=== PATIENT | female | born 1940 | race African-American/Black ===

== ENCOUNTER → 2016-09-07 | Outpatient (CLI) | payer MEDICARE, OTHER ==
[~2016-09-07] MED LIST: ACETTAB85; ALBU0.084; ATEN50TA80; FEXO-8; FLUT250M2; MONT4GRA; OXYC5TAB3; POTA10TA34; TELM80TA; norvasc
[2016-09-07 16:15] LABS: Basophils # (auto) 0 uL; Basophils % (auto) 0.9 % (0.0-2.0); Eosinophils # (auto) 0.1 uL; Eosinophils % (auto) 1.9 % (0.0-7.0); Hematocrit 35.8 % (36.0-46.0); Hemoglobin 11.1 g/dL (12.2-16.2); Lymphocytes # (auto) 1.6 uL; Lymphocytes % (auto) 32.5 % (10.0-50.0); Mean Corpuscular Volume 93.4 fL (80.0-100.0); Mean Platelet Volume 8.6 fL (7.4-10.4); Monocytes # (auto) 0.4 uL; Monocytes % (auto) 8.2 % (0.0-12.0); Neutrophils # (auto) 2.8 uL; Neutrophils % (auto) 56.5 % (37.0-80.0); Platelet Count (auto) 368 10^3/uL (140-450); Red Cell Distribution Width 14.4 % (11.6-16.0); White Blood Cell 4.9 10^3/uL (4.4-10.8)
[2016-09-07 16:43] LABS: Calcium 8.9 mg/dL (8.5-10.1); Potassium 3.6 mmol/L (3.5-5.1)
[2016-09-07 16:45] LABS: BUN/Creatinine Ratio 9.7
== END | disposition home or self-care (01) ==
LOC: LAB 13:07
PROVIDERS: ATTEND Internal Medicine Cardiovascular Disease
DX: I10 Essential (primary) hypertension (principal); D64.9 Anemia, unspecified
CPT/HCPCS: 36415; 80048; 85025

== ENCOUNTER → 2016-11-27 | Outpatient (CLI) | payer MEDICARE, OTHER ==
[2016-11-27 08:10] VITALS: BP 120/59
[2016-11-27 09:05] VITALS: BP 117/65
== END | disposition home or self-care (01) ==
LOC: CHF HDHVI 08:09
PROVIDERS: ATTEND Internal Medicine Cardiovascular Disease
DX: I11.0 Hypertensive heart disease with heart failure (principal); I50.9 Heart failure, unspecified; R07.9 Chest pain, unspecified
CPT/HCPCS: 93005; G0463

== ENCOUNTER → 2017-01-22 | Outpatient (CLI) | payer MEDICARE, OTHER ==
[~2017-01-22] MED LIST changes: +CYANOCOBALAMIN (B-12) 1000 MCG/1 ML VIAL IM ONE; +CYANOCOBALAMIN (B-12) 1000 MCG/1 ML VIAL ONE; +MULTIPLE VIT 10 ML IV ONE; +MVI in SODIUM CHLORIDE 0.9% 1,010 ML ONE; +ONDANSETRON HCL 4 MG/2 ML VIAL IV ONE; +ONDANSETRON HCL 4 MG/2 ML VIAL ONE
[2017-01-22 12:20] LABS: Basophils # (auto) 0 uL; Basophils % (auto) 0.7 % (0.0-2.0); CONDITION Y; Eosinophils # (auto) 0.1 uL; Eosinophils % (auto) 1.8 % (0.0-7.0); Hematocrit 37.2 % (36.0-46.0); Hemoglobin 12.5 g/dL (12.2-16.2); Lymphocytes # (auto) 2.2 uL; Lymphocytes % (auto) 34.3 % (10.0-50.0); Mean Corpuscular Hemoglobin 30.9 pg (28.0-32.0); Mean Corpuscular Hgb Conc. 33.5 g/dL (32.0-36.0); Mean Corpuscular Volume 92.3 fL (80.0-100.0); Mean Platelet Volume 8.6 fL (7.4-10.4); Monocytes # (auto) 0.5 uL; Monocytes % (auto) 8.3 % (0.0-12.0); Neutrophils # (auto) 3.6 uL; Neutrophils % (auto) 54.9 % (37.0-80.0); Platelet Count (auto) 399 10^3/uL (140-450); White Blood Cell 6.5 10^3/uL (4.4-10.8)
[2017-01-22 12:30] VITALS: BP 149/68
[2017-01-22 12:40] LABS: INR 0.93 (0.9-1.15); Partial Thromboplastin Time 26.1 sec (22.64-33.71); Prothrombin Time 10.1 sec (9.37-12.3)
[2017-01-22 13:01] LABS: BUN/Creatinine Ratio 14.5; Calcium 8.3 mg/dL (8.5-10.1); Potassium 4.1 mmol/L (3.5-5.1)
== END | disposition home or self-care (01) ==
LOC: CHF HDHVI 09:55
PROVIDERS: ATTEND Internal Medicine Cardiovascular Disease
DX: I10 Essential (primary) hypertension (principal); D64.9 Anemia, unspecified; R79.1 Abnormal coagulation profile; Z01.812 Encounter for preprocedural laboratory examination
CPT/HCPCS: 36415; 80048; 85025; 85610; 85730; 96365; 96366; 96372; 96375; G0463; J2405; J3411; J3420; J3475

== ENCOUNTER → 2017-02-20 | Outpatient (CLI) | payer MEDICARE, OTHER ==
[~2017-02-20] VITALS: Ht 30.5 cm; Wt 68.0 kg
[~2017-02-20] MED LIST changes: -CYANOCOBALAMIN (B-12) 1000 MCG/1 ML VIAL IM ONE; -CYANOCOBALAMIN (B-12) 1000 MCG/1 ML VIAL ONE; -ONDANSETRON HCL 4 MG/2 ML VIAL IV ONE; -ONDANSETRON HCL 4 MG/2 ML VIAL ONE; +SODIUM CHLORIDE 0.9% 500 ML IV SCH
[2017-02-20 14:15] VITALS: BP 126/63
[2017-02-20 16:39] LABS: Basophils # (auto) 0.1 uL; Basophils % (auto) 0.9 % (0.0-2.0); CONDITION Y; Eosinophils # (auto) 0.2 uL; Eosinophils % (auto) 3.1 % (0.0-7.0); Hematocrit 29.7 % (36.0-46.0); Lymphocytes # (auto) 1.7 uL; Lymphocytes % (auto) 31.2 % (10.0-50.0); Mean Corpuscular Hemoglobin 30.2 pg (28.0-32.0); Mean Corpuscular Hgb Conc. 33.6 g/dL (32.0-36.0); Mean Corpuscular Volume 89.9 fL (80.0-100.0); Mean Platelet Volume 7.8 fL (7.4-10.4); Monocytes # (auto) 0.5 uL; Monocytes % (auto) 10.2 % (0.0-12.0); Neutrophils # (auto) 2.9 uL; Neutrophils % (auto) 54.6 % (37.0-80.0); Platelet Count (auto) 719 10^3/uL (140-450); Red Cell Distribution Width 14.3 % (11.6-16.0); White Blood Cell 5.3 10^3/uL (4.4-10.8)
== END | disposition home or self-care (01) ==
LOC: CHF HDHVI 10:47
PROVIDERS: ATTEND Internal Medicine Cardiovascular Disease
DX: D64.9 Anemia, unspecified (principal); I10 Essential (primary) hypertension
CPT/HCPCS: 36415; 85025; 96365; 96366; G0463; J3411; J3475; 96360

== ENCOUNTER → 2017-03-06 | Outpatient (CLI) | payer MEDICARE, OTHER ==
[~2017-03-06] MED LIST changes: -MULTIPLE VIT 10 ML IV ONE; +MVI in SODIUM CHLORIDE 0.9% 1,000 ML IVB ONE; -SODIUM CHLORIDE 0.9% 500 ML IV SCH
[2017-03-06 15:00] VITALS: BP 134/68
[2017-03-06 16:53] LABS: Basophils # (auto) 0 uL; Basophils % (auto) 0.5 % (0.0-2.0); CONDITION Y; Eosinophils # (auto) 0.1 uL; Eosinophils % (auto) 1.1 % (0.0-7.0); Hematocrit 27.9 % (36.0-46.0); Hemoglobin 9.3 g/dL (12.2-16.2); Lymphocytes % (auto) 15.1 % (10.0-50.0); Mean Corpuscular Hemoglobin 30.2 pg (28.0-32.0); Mean Corpuscular Hgb Conc. 33.5 g/dL (32.0-36.0); Mean Corpuscular Volume 90.2 fL (80.0-100.0); Mean Platelet Volume 8.9 fL (7.4-10.4); Monocytes # (auto) 0.4 uL; Monocytes % (auto) 6.7 % (0.0-12.0); Neutrophils # (auto) 4.9 uL; Neutrophils % (auto) 76.6 % (37.0-80.0); Platelet Count (auto) 418 10^3/uL (140-450); Red Cell Distribution Width 14.8 % (11.6-16.0); White Blood Cell 6.4 10^3/uL (4.4-10.8)
[2017-03-06 17:19] LABS: Calcium 8.5 mg/dL (8.5-10.1); Magnesium 2.4 mg/dL (1.6-2.6); Potassium 4.1 mmol/L (3.5-5.1)
== END | disposition home or self-care (01) ==
LOC: CHF HDHVI 11:32
PROVIDERS: ATTEND Internal Medicine Cardiovascular Disease
DX: I10 Essential (primary) hypertension (principal); E83.42 Hypomagnesemia; E03.9 Hypothyroidism, unspecified; D64.9 Anemia, unspecified
CPT/HCPCS: 36415; 80048; 83735; 84439; 84443; 85025; J3411; J3475

== ENCOUNTER → 2017-03-15 | Outpatient (CLI) | payer MEDICARE, OTHER ==
[~2017-03-15] MED LIST changes: +EPOETIN ALFA 10,000 UNIT/1 ML VIAL ONE; +EPOETIN ALFA 4,000 UNIT/ML VL SC ONE; -MVI in SODIUM CHLORIDE 0.9% 1,000 ML IVB ONE; -MVI in SODIUM CHLORIDE 0.9% 1,010 ML ONE
[2017-03-15 13:30] VITALS: BP 128/64
[2017-03-15 13:56] VITALS: BP 133/56
== END | disposition home or self-care (01) ==
LOC: CHF HDHVI 13:34
PROVIDERS: ATTEND Internal Medicine Cardiovascular Disease
DX: I50.9 Heart failure, unspecified (principal); D64.89 Other specified anemias
CPT/HCPCS: 96372; G0463; J0885

== ENCOUNTER → 2017-03-22 | Outpatient (CLI) | payer MEDICARE, OTHER ==
[~2017-03-22] MED LIST changes: +CYANOCOBALAMIN (B-12) 1000 MCG/1 ML VIAL IM ONE; +CYANOCOBALAMIN (B-12) 1000 MCG/1 ML VIAL ONE; -EPOETIN ALFA 10,000 UNIT/1 ML VIAL ONE; -EPOETIN ALFA 4,000 UNIT/ML VL SC ONE
[2017-03-22 12:15] VITALS: BP 103/55
[2017-03-22 14:01] VITALS: BP 96/58
== END | disposition home or self-care (01) ==
LOC: CHF HDHVI 12:42
PROVIDERS: ATTEND Internal Medicine Cardiovascular Disease
DX: D64.9 Anemia, unspecified (principal); I11.0 Hypertensive heart disease with heart failure; I50.9 Heart failure, unspecified; R42 Dizziness and giddiness; R06.02 Shortness of breath
CPT/HCPCS: 96372; G0463; J3420

== ENCOUNTER → 2017-03-27 | Outpatient (CLI) | payer MEDICARE, OTHER ==
[~2017-03-27] VITALS: Ht 30.5 cm; Wt 0.5 kg
[~2017-03-27] MED LIST changes: +KETOROLAC TROMETH 60MG/2ML VIAL IM ONE
[2017-03-27 11:25] VITALS: BP 117/53
[2017-03-27 11:59] VITALS: BP 110/51
[2017-03-27 16:13] LABS: Basophils # (auto) 0 uL; Basophils % (auto) 0.8 % (0.0-2.0); CONDITION Y; Eosinophils # (auto) 0.2 uL; Eosinophils % (auto) 3.1 % (0.0-7.0); Hematocrit 31.8 % (36.0-46.0); Hemoglobin 10.4 g/dL (12.2-16.2); Lymphocytes # (auto) 1.4 uL; Lymphocytes % (auto) 23.6 % (10.0-50.0); Mean Corpuscular Hemoglobin 29.7 pg (28.0-32.0); Mean Corpuscular Hgb Conc. 32.5 g/dL (32.0-36.0); Mean Corpuscular Volume 91.2 fL (80.0-100.0); Monocytes # (auto) 0.5 uL; Monocytes % (auto) 7.8 % (0.0-12.0); Neutrophils # (auto) 3.9 uL; Neutrophils % (auto) 64.7 % (37.0-80.0); Platelet Count (auto) 452 10^3/uL (140-450); Red Cell Distribution Width 16.3 % (11.6-16.0); White Blood Cell 6.1 10^3/uL (4.4-10.8)
[2017-03-27 16:36] LABS: BUN/Creatinine Ratio 12.5; Calcium 8.7 mg/dL (8.5-10.1); Magnesium 2.6 mg/dL (1.6-2.6); Potassium 3.9 mmol/L (3.5-5.1)
== END | disposition home or self-care (01) ==
LOC: CHF HDHVI 11:33
PROVIDERS: ATTEND Internal Medicine Cardiovascular Disease
DX: I10 Essential (primary) hypertension (principal); D51.9 Vitamin B12 deficiency anemia, unspecified; E55.9 Vitamin D deficiency, unspecified; D64.9 Anemia, unspecified
CPT/HCPCS: 36415; 80048; 82306; 82607; 83735; 85025; 96372; G0463; J1885; J3420

== ENCOUNTER → 2017-06-10 | Outpatient (CLI) | payer MEDICARE, OTHER ==
[~2017-06-10] MED LIST changes: -CYANOCOBALAMIN (B-12) 1000 MCG/1 ML VIAL IM ONE; -CYANOCOBALAMIN (B-12) 1000 MCG/1 ML VIAL ONE; -KETOROLAC TROMETH 60MG/2ML VIAL IM ONE
[2017-06-10 16:40] LABS: BUN/Creatinine Ratio 8.9; Magnesium 2.7 mg/dL (1.6-2.6); Potassium 4.2 mmol/L (3.5-5.1)
== END | disposition home or self-care (01) ==
LOC: LAB 12:06
PROVIDERS: ATTEND Internal Medicine Cardiovascular Disease
DX: I10 Essential (primary) hypertension (principal); E83.42 Hypomagnesemia
CPT/HCPCS: 36415; 80048; 83735

== ENCOUNTER → 2017-08-02 | Outpatient (CLI) | payer MEDICARE, OTHER ==
[~2017-08-02] MED LIST changes: +ALPR0.25 PO; +CHOL400C12 PO; +ESOM20CA PO; +FLUT250M2 IN; +HCTZ25T GT; +LEVO25TA6 PO; +MAGNTAB16 OR; +MET250T PO; +MONT10TA23 PO; +MONT10TA34 PO; -TELM80TA; +TELM80TA PO; +[UNRECOGNIZED DRUG - CODE] PO; +[UNRECOGNIZED DRUG - CODE] TD
[2017-08-02 15:45] LABS: BUN/Creatinine Ratio 12.5; Calcium 8.5 mg/dL (8.5-10.1); Potassium 3.8 mmol/L (3.5-5.1)
== END | disposition home or self-care (01) ==
LOC: LAB 12:56
PROVIDERS: ATTEND Internal Medicine Cardiovascular Disease
DX: I10 Essential (primary) hypertension (principal); J44.9 Chronic obstructive pulmonary disease, unspecified
CPT/HCPCS: 36415; 80048

== ENCOUNTER → 2017-09-24 | Outpatient (CLI) | payer MEDICARE, OTHER | END | disposition home or self-care (01) | LOC: LAB 10:05 | PROVIDERS: ATTEND Internal Medicine Cardiovascular Disease | DX: E03.9 Hypothyroidism, unspecified (principal) | CPT/HCPCS: 36415; 84439; 84443 ==

== ENCOUNTER 2017-10-22 14:20 | Inpatient (IN) | payer MEDICARE, OTHER ==
[~2017-10-22] VITALS: Ht 160 cm; Wt 71.9 kg
[~2017-10-22 14:20] MED LIST changes: -ALPR0.25 PO; -CHOL400C12 PO; -FLUT250M2 IN; -LEVO25TA6 PO; -MAGNTAB16 OR; -MET250T PO; -MONT10TA23 PO; -MONT10TA34 PO; -[UNRECOGNIZED DRUG - CODE] PO; -[UNRECOGNIZED DRUG - CODE] TD
[2017-10-22 15:41] LABS: Basophils # (auto) 0 uL; Basophils % (auto) 1.1 % (0.0-2.0); Eosinophils # (auto) 0.2 uL; Eosinophils % (auto) 4.8 % (0.0-7.0); Hematocrit 34.5 % (36.0-46.0); Hemoglobin 11.7 g/dL (12.2-16.2); Lymphocytes # (auto) 1.1 uL; Mean Corpuscular Hemoglobin 32.1 pg (28.0-32.0); Mean Corpuscular Hgb Conc. 33.8 g/dL (32.0-36.0); Monocytes # (auto) 0.6 uL; Monocytes % (auto) 11.9 % (0.0-12.0); Neutrophils # (auto) 2.7 uL; Neutrophils % (auto) 58.2 % (37.0-80.0); Nucleated Red Blood Cells % 0.1 %; Platelet Count (auto) 346 10^3/uL (140-450); Red Blood Cells 3.63 10^6/uL (4.0-5.20); Red Cell Distribution Width 14.5 % (11.8-14.3); White Blood Cell 4.7 10^3/uL (4.4-10.8)
[2017-10-22 15:52] LABS: INR 0.94 (0.9-1.15); Partial Thromboplastin Time 22.9 sec (22.64-33.71); Prothrombin Time 10.2 sec (9.37-12.3)
[2017-10-22 15:58] LABS: Alanine Aminotransferase 17 U/L (13-56); Albumin 3.4 g/dL (3.4-5.0); Alkaline Phosphatase 67 U/L (45-117); Anion Gap 6 (5-15); Aspartate Aminotransferase 14 U/L (15-37); BUN/Creatinine Ratio 10.5; Bilirubin, Total 0.2 mg/dL (0.2-1.0); Blood Alcohol < 3.0 mg/dL (0-5); Blood Urea Nitrogen 15 mg/dL (7-18); Calcium 8.5 mg/dL (8.5-10.1); Carbon Dioxide 27 mmol/L (21-32); Chloride 105 mmol/L (98-107); GFR African American 46 mL/min; GFR Non-African American 38 mL/min; Glucose 119 mg/dL (74-106); Magnesium 2.8 mg/dL (1.6-2.6); Potassium 4.6 mmol/L (3.5-5.1); Sodium 138 mmol/L (136-145); Total Protein 6.4 g/dL (6.4-8.2)
[2017-10-22] MEDS ORDERED: ACETAMINOPHEN 325 MG TAB PO PRN (16:45)
[2017-10-22] MEDS ORDERED: MORPHINE SULFATE 4 MG/ML SYR/VIAL IV PRN ×2 (16:45)
[2017-10-22] MEDS ORDERED: ZOLPIDEM TARTRATE 5 MG TAB PO PRN (16:45)
[2017-10-22] MEDS ORDERED: ONDANSETRON HCL 4 MG/2 ML VIAL IV PRN (16:45)
[2017-10-22] MEDS ORDERED: ALUM & MAG HYDROX-SIMETH LIQ(MAALOX) 30 ML PO ONE (16:45)
[2017-10-22] MEDS ORDERED: LORazepam 0.5 MG TAB PO PRN (16:45)
[2017-10-22] MEDS ORDERED: NITROGLYCERIN 0.4 MG SL TAB SL PRN ×2 (16:45)
[2017-10-22] MEDS ORDERED: CLOPIDOGREL BISULFATE 75 MG TAB PO ONE (17:00)
[2017-10-22] MEDS ORDERED: MULTIPLE VITAMINS W/ MINERALS TAB PO ONE (17:00)
[2017-10-22] MEDS ORDERED: DOCUSATE SOD 100 MG CAP PO ONE (17:00)
[2017-10-22] MEDS: ASPirin 81 mg TAB PO SCH (17:36)
[2017-10-22] MEDS: METHYLDOPA 250 MG TAB PO SCH ×2 (18:00→22:00)
[2017-10-22 18:05] VITALS: BP 104/48
[2017-10-22] MEDS: ALBUTEROL SULF 2.5 MG/0.5ML(0.5%) NEB SOLN NEB SCH (18:05)
[2017-10-22] MEDS: BUDESONIDE (INHALATION) 0.5 MG/2 ML NEB NEB SCH (18:05)
[2017-10-22 20:15] VITALS: BP 129/54
[2017-10-22] MEDS: ATORVASTATIN 20 MG TAB PO SCH (22:00)
[2017-10-22] MEDS: CARVEDILOL 3.125 MG TAB PO SCH (22:00)
[2017-10-22] MEDS: SODIUM CHLOR 0.9% PF (SALINE LOCK) 10ML VIAL IV SCH (22:13)
[2017-10-22] MEDS: MONTELUKAST SODIUM 10 MG TAB PO SCH (22:17)
[2017-10-23] MEDS: ALBUTEROL SULF 2.5 MG/0.5ML(0.5%) NEB SOLN NEB SCH ×4 (00:15→19:03)
[2017-10-23] MEDS ORDERED: TELM80TA PO (04:59)
[2017-10-23] MEDS ORDERED: [UNRECOGNIZED DRUG - CODE] TD (04:59)
[2017-10-23] MEDS ORDERED: MAGNTAB16 OR (04:59)
[2017-10-23] MEDS ORDERED: LEVO25TA6 PO (04:59)
[2017-10-23] MEDS ORDERED: [UNRECOGNIZED DRUG - CODE] PO (04:59)
[2017-10-23] MEDS ORDERED: MONT10TA34 PO (04:59)
[2017-10-23] MEDS ORDERED: CHOL400C12 PO (04:59)
[2017-10-23] MEDS ORDERED: MONT10TA23 PO (04:59)
[2017-10-23] MEDS ORDERED: MET250T PO (04:59)
[2017-10-23] MEDS ORDERED: FLUT250M2 IN (04:59)
[2017-10-23 05:00] VITALS: BP 121/51
[2017-10-23 05:51] LABS: Basophils # (auto) 0 uL; Basophils % (auto) 0.5 % (0.0-2.0); Eosinophils # (auto) 0.2 uL; Eosinophils % (auto) 2.1 % (0.0-7.0); Hematocrit 30.9 % (36.0-46.0); Hemoglobin 10.5 g/dL (12.2-16.2); Lymphocytes # (auto) 1.2 uL; Lymphocytes % (auto) 12.8 % (10.0-50.0); Mean Corpuscular Hemoglobin 32.5 pg (28.0-32.0); Mean Corpuscular Volume 95.6 fL (80.0-100.0); Monocytes # (auto) 0.7 uL; Monocytes % (auto) 7.1 % (0.0-12.0); Neutrophils # (auto) 7.5 uL; Neutrophils % (auto) 77.5 % (37.0-80.0); Platelet Count (auto) 308 10^3/uL (140-450); Red Blood Cells 3.23 10^6/uL (4.0-5.20); Red Cell Distribution Width 14.2 % (11.8-14.3); White Blood Cell 9.7 10^3/uL (4.4-10.8)
[2017-10-23 06:09] LABS: Albumin 3.1 g/dL (3.4-5.0); BUN/Creatinine Ratio 12.3; Bilirubin, Total 0.4 mg/dL (0.2-1.0); Magnesium 2.3 mg/dL (1.6-2.6); Potassium 4.2 mmol/L (3.5-5.1); Total Protein 5.9 g/dL (6.4-8.2)
[2017-10-23] MEDS: METHYLDOPA 250 MG TAB PO SCH ×4 (06:23→22:24)
[2017-10-23] MEDS: LEVOTHYROXINE SODIUM 50 MCG TAB PO SCH (06:23)
[2017-10-23] MEDS ORDERED: ALPR0.25 PO (06:24)
[2017-10-23] MEDS: SODIUM CHLOR 0.9% PF (SALINE LOCK) 10ML VIAL IV SCH ×3 (06:30→22:00)
[2017-10-23] MEDS: BUDESONIDE (INHALATION) 0.5 MG/2 ML NEB NEB SCH ×2 (07:08→19:03)
[2017-10-23 09:00] VITALS: BP 125/43
[2017-10-23 09:42] LABS: Urine Bacteria NONE SEEN /hpf (None Seen); Urine Blood Negative /uL (Negative); Urine Hyaline Cast FEW /lpf (0 - 2); Urine Specific Gravity 1.023 (1.001-1.035); Urine WBC 1 /hpf (0 - 5)
[2017-10-23] MEDS: CARVEDILOL 3.125 MG TAB PO SCH ×3 (10:00→22:25)
[2017-10-23] MEDS: MAGNESIUM OXIDE 400 MG TAB PO SCH (10:00)
[2017-10-23] MEDS ORDERED: MAGNESIUM OXIDE 400 MG TAB PO SCH (10:00)
[2017-10-23] MEDS: HCTZ 25 MG TAB PO SCH (10:09)
[2017-10-23] MEDS: MULTIPLE VITAMINS W/ MINERALS TAB PO SCH (10:09)
[2017-10-23] MEDS: DOCUSATE SOD 100 MG CAP PO SCH (10:09)
[2017-10-23] MEDS: LOSARTAN POTASSIUM 50 MG TAB PO SCH (10:09)
[2017-10-23] MEDS: CHOLECALCIFEROL (VITD3) 1,000 UNIT TAB PO SCH (10:09)
[2017-10-23] MEDS: ASPirin 81 mg TAB PO SCH (10:09)
[2017-10-23] MEDS: CLOPIDOGREL BISULFATE 75 MG TAB PO SCH (10:09)
[2017-10-23 12:21] VITALS: BP 136/62
[2017-10-23 17:22] VITALS: BP 128/47
[2017-10-23 21:47] VITALS: BP 140/48
[2017-10-23] MEDS: ATORVASTATIN 20 MG TAB PO SCH (22:00)
[2017-10-23] MEDS: MONTELUKAST SODIUM 10 MG TAB PO SCH (22:25)
[2017-10-24] MEDS: ALBUTEROL SULF 2.5 MG/0.5ML(0.5%) NEB SOLN NEB SCH ×2 (00:39→06:33)
[2017-10-24 05:01] VITALS: BP 146/68
[2017-10-24] MEDS ORDERED: CARISOPRODOL 350 MG TAB PO ONE ×2 (06:15→06:45)
[2017-10-24] MEDS: SODIUM CHLOR 0.9% PF (SALINE LOCK) 10ML VIAL IV SCH (06:20)
[2017-10-24] MEDS: METHYLDOPA 250 MG TAB PO SCH ×2 (06:22→12:00)
[2017-10-24] MEDS: BUDESONIDE (INHALATION) 0.5 MG/2 ML NEB NEB SCH (06:33)
[2017-10-24 06:46] LABS: Basophils # (auto) 0 uL; Basophils % (auto) 0.6 % (0.0-2.0); Eosinophils # (auto) 0.2 uL; Eosinophils % (auto) 2.1 % (0.0-7.0); Hematocrit 32.8 % (36.0-46.0); Lymphocytes # (auto) 1.4 uL; Lymphocytes % (auto) 17.7 % (10.0-50.0); Mean Corpuscular Hemoglobin 31.4 pg (28.0-32.0); Mean Corpuscular Hgb Conc. 33.5 g/dL (32.0-36.0); Mean Corpuscular Volume 93.8 fL (80.0-100.0); Monocytes # (auto) 0.7 uL; Monocytes % (auto) 9.1 % (0.0-12.0); Neutrophils # (auto) 5.8 uL; Neutrophils % (auto) 70.5 % (37.0-80.0); Nucleated Red Blood Cells % 0.1 %; Platelet Count (auto) 328 10^3/uL (140-450); Red Cell Distribution Width 14.2 % (11.8-14.3); White Blood Cell 8.2 10^3/uL (4.4-10.8)
[2017-10-24] MEDS: LEVOTHYROXINE SODIUM 50 MCG TAB PO SCH (06:51)
[2017-10-24 06:52] LABS: Calcium 9.1 mg/dL (8.5-10.1); Potassium 4.1 mmol/L (3.5-5.1)
[2017-10-24 06:59] LABS: BUN/Creatinine Ratio 15.3
[2017-10-24 09:00] VITALS: BP_SYST 107; BP_SYST 141; BP_DIAS 62; BP_DIAS 66
[2017-10-24] MEDS: CARVEDILOL 3.125 MG TAB PO SCH (10:00)
[2017-10-24] MEDS: MAGNESIUM OXIDE 400 MG TAB PO SCH (10:04)
[2017-10-24] MEDS: DOCUSATE SOD 100 MG CAP PO SCH (10:04)
[2017-10-24] MEDS: CHOLECALCIFEROL (VITD3) 1,000 UNIT TAB PO SCH (10:04)
[2017-10-24] MEDS: MULTIPLE VITAMINS W/ MINERALS TAB PO SCH (10:04)
[2017-10-24] MEDS: CLOPIDOGREL BISULFATE 75 MG TAB PO SCH (10:04)
[2017-10-24] MEDS: ASPirin 81 mg TAB PO SCH (10:04)
[2017-10-24] MEDS: HCTZ 25 MG TAB PO SCH (10:06)
[2017-10-24] MEDS: LOSARTAN POTASSIUM 50 MG TAB PO SCH (10:07)
== END 2017-10-24 13:58 | disposition home or self-care (01) | DRG 191 ==
LOC: EDBD 14:20 → ER 14:20 → TELE 14:21 → TELE-EAST 20:39
PROVIDERS: ADMIT Internal Medicine; ATTEND Family Medicine
DX: J44.1 Chronic obstructive pulmonary disease with (acute) exacerbation (principal); J45.901 Unspecified asthma with (acute) exacerbation; E11.22 Type 2 diabetes mellitus with diabetic chronic kidney disease; E83.41 Hypermagnesemia; D63.8 Anemia in other chronic diseases classified elsewhere; E86.9 Volume depletion, unspecified; R55 Syncope and collapse; S00.83XA Contusion of other part of head, initial encounter; I25.119 Atherosclerotic heart disease of native coronary artery with unspecified angina pectoris; E03.9 Hypothyroidism, unspecified; E78.00 Pure hypercholesterolemia, unspecified; I10 Essential (primary) hypertension; I67.2 Cerebral atherosclerosis; N18.3 Chronic kidney disease, stage 3 (moderate); W18.39XA Other fall on same level, initial encounter; Z82.49 Family history of ischemic heart disease and other diseases of the circulatory system; Z90.710 Acquired absence of both cervix and uterus; Z98.49 Cataract extraction status, unspecified eye; Z79.899 Other long term (current) drug therapy; Y93.89 Activity, other specified; Y92.89 Other specified places as the place of occurrence of the external cause
CPT/HCPCS: 36415; 70450; 70551; 71045; 80048; 80053; 80061; 80320; 81001; 83735; 83880; 84443; 84484; 85025; 85379; 85610; 85730; 87086; 93005; 93306; 94640; 95819

== ENCOUNTER → 2017-12-25 | Outpatient (CLI) | payer MEDICARE, OTHER ==
[~2017-12-25] MED LIST changes: -ACETTAB85; -ALBU0.084; +ALPR0.25 PO; -ATEN50TA80; +CHOL400C12 PO; -ESOM20CA PO; -FEXO-8; -FLUT250M2; +FLUT250M2 IN; -HCTZ25T GT; +LEVO25TA6 PO; +MAGNTAB16 OR; +MET250T PO; +MONT10TA23 PO; -MONT4GRA; -OXYC5TAB3; -POTA10TA34; +[UNRECOGNIZED DRUG - CODE] PO; +[UNRECOGNIZED DRUG - CODE] TD; -norvasc
[2017-12-25 15:57] LABS: Basophils # (auto) 0 uL; Basophils % (auto) 0.8 % (0.0-2.0); Eosinophils # (auto) 0.1 uL; Eosinophils % (auto) 1.9 % (0.0-7.0); Hematocrit 33.2 % (36.0-46.0); Hemoglobin 11.1 g/dL (12.2-16.2); Lymphocytes # (auto) 1.6 uL; Lymphocytes % (auto) 30.8 % (10.0-50.0); Mean Corpuscular Hemoglobin 31.6 pg (28.0-32.0); Mean Corpuscular Hgb Conc. 33.4 g/dL (32.0-36.0); Mean Corpuscular Volume 94.6 fL (80.0-100.0); Monocytes # (auto) 0.5 uL; Monocytes % (auto) 10.1 % (0.0-12.0); Neutrophils # (auto) 2.9 uL; Neutrophils % (auto) 56.4 % (37.0-80.0); Nucleated Red Blood Cells % 0.1 %; Platelet Count (auto) 350 10^3/uL (140-450); Red Blood Cells 3.51 10^6/uL (4.0-5.20); Red Cell Distribution Width 14.1 % (11.8-14.3); White Blood Cell 5.2 10^3/uL (4.4-10.8)
== END | disposition home or self-care (01) ==
LOC: LAB 12:22
PROVIDERS: ATTEND Internal Medicine Cardiovascular Disease
DX: D64.9 Anemia, unspecified (principal); D72.810 Lymphocytopenia
CPT/HCPCS: 36415; 85025; 85045

== ENCOUNTER 2018-01-29 17:44 | Inpatient (IN) | payer MEDICARE, OTHER ==
[~2018-01-29] VITALS: Ht 160 cm; Wt 74.9 kg
[2018-01-29 18:56] LABS: Basophils # (auto) 0 uL; Basophils % (auto) 0.7 % (0.0-2.0); Eosinophils # (auto) 0.1 uL; Eosinophils % (auto) 1.7 % (0.0-7.0); Hematocrit 32.3 % (36.0-46.0); Hemoglobin 10.9 g/dL (12.2-16.2); Lymphocytes # (auto) 1.7 uL; Lymphocytes % (auto) 35.8 % (10.0-50.0); Mean Corpuscular Hemoglobin 31.6 pg (28.0-32.0); Mean Corpuscular Hgb Conc. 33.8 g/dL (32.0-36.0); Mean Corpuscular Volume 93.3 fL (80.0-100.0); Monocytes # (auto) 0.6 uL; Neutrophils # (auto) 2.3 uL; Neutrophils % (auto) 49.8 % (37.0-80.0); Platelet Count (auto) 294 10^3/uL (140-450); Red Blood Cells 3.46 10^6/uL (4.0-5.20); Red Cell Distribution Width 13.9 % (11.8-14.3); White Blood Cell 4.7 10^3/uL (4.4-10.8)
[2018-01-29 19:19] LABS: Alanine Aminotransferase 19 U/L (13-56); Albumin 3.5 g/dL (3.4-5.0); Alkaline Phosphatase 76 U/L (45-117); Anion Gap 9 (5-15); Aspartate Aminotransferase 13 U/L (15-37); BUN/Creatinine Ratio 12.1; Bilirubin, Total 0.2 mg/dL (0.2-1.0); Blood Urea Nitrogen 15 mg/dL (7-18); Calcium 8.9 mg/dL (8.5-10.1); Carbon Dioxide 25 mmol/L (21-32); Chloride 100 mmol/L (98-107); GFR African American 54 mL/min; GFR Non-African American 44 mL/min; Glucose 96 mg/dL (74-106); Potassium 3.8 mmol/L (3.5-5.1); Sodium 134 mmol/L (136-145); Total Protein 6.5 g/dL (6.4-8.2)
[2018-01-29] MEDS ORDERED: cloNIDine HCL 0.1 MG TAB PO ONE (21:45)
[2018-01-29 22:00] LABS: INR 0.93 (0.9-1.15); Partial Thromboplastin Time 25.6 sec (23.78-33.04)
[2018-01-30] VITALS (8 sets, daily range): BP systolic 129–157; BP diastolic 61–103
[2018-01-30] MEDS ORDERED: NITROGLYCERIN 0.4 MG SL TAB SL PRN (03:45)
[2018-01-30] MEDS ORDERED: MORPHINE SULF INJ 2 MG/ML SYRINGE 1ML IV PRN (03:45)
[2018-01-30] MEDS ORDERED: METHYLDOPA 250 MG TAB PO SCH ×2 (06:00→07:15)
[2018-01-30] MEDS ORDERED: MECLIZINE HCL 25 MG TAB PO PRN (07:00)
[2018-01-30] MEDS ORDERED: BUDESONIDE (INHALATION) 0.5 MG/2 ML NEB ONE (07:48)
[2018-01-30] MEDS: ENOXAPARIN SOD 60 MG/0.6 ML SYRINGE SC SCH ×2 (09:15→22:12)
[2018-01-30] MEDS: MONTELUKAST SODIUM 10 MG TAB PO SCH (09:15)
[2018-01-30] MEDS: METHYLDOPA 250 MG TAB PO SCH ×3 (09:25→22:12)
[2018-01-30] MEDS ORDERED: ALBUTEROL SULF 2.5 MG/0.5ML(0.5%) NEB SOLN NEB PRN (10:00)
[2018-01-30] MEDS ORDERED: CYCLOBENZAPRINE HCL 10 MG TAB PO ONE (10:00)
[2018-01-30] MEDS ORDERED: MICARDIS 40 MG PO SCH (10:00)
[2018-01-30] MEDS ORDERED: FERROUS SULFATE 325 MG TAB PO ONE (10:00)
[2018-01-30] MEDS: LEVOTHYROXINE SODIUM 50 MCG TAB PO SCH (10:56)
[2018-01-30] MEDS: FLUTICASONE PROP NASAL SPR 0.05 % (50MCG) 16GM EACHNOSTRI SCH (10:56)
[2018-01-30] MEDS ORDERED: CYCLOBENZAPRINE HCL 10 MG TAB PO PRN (14:00)
[2018-01-30 14:40] LABS: Urine Bacteria FEW /hpf (None Seen); Urine Blood Negative /uL (Negative); Urine Specific Gravity 1.005 (1.001-1.035); Urine WBC 1 /hpf (0 - 5)
[2018-01-30] MEDS: FERROUS SULFATE 325 MG TAB PO SCH (14:58)
[2018-01-30] MEDS: [UNRECOGNIZED DRUG - OTHER] PO SCH (17:00)
[2018-01-30] MEDS ORDERED: ACETAMINOPHEN 325 MG TAB PO ONE (20:30)
[2018-01-30] MEDS ORDERED: ACETAMINOPHEN 325 MG TAB PO PRN (21:30)
[2018-01-31 05:00] VITALS: BP 152/66
[2018-01-31] MEDS: METHYLDOPA 250 MG TAB PO SCH ×2 (06:20→15:03)
[2018-01-31 08:00] VITALS: BP 148/69
[2018-01-31 09:00] VITALS: BP 148/69
[2018-01-31] MEDS: LEVOTHYROXINE SODIUM 50 MCG TAB PO SCH (10:00)
[2018-01-31] MEDS: MONTELUKAST SODIUM 10 MG TAB PO SCH (10:05)
[2018-01-31] MEDS: FERROUS SULFATE 325 MG TAB PO SCH (10:05)
[2018-01-31] MEDS: FLUTICASONE PROP NASAL SPR 0.05 % (50MCG) 16GM EACHNOSTRI SCH (10:06)
[2018-01-31] MEDS: ENOXAPARIN SOD 60 MG/0.6 ML SYRINGE SC SCH (10:06)
[2018-01-31] MEDS: [UNRECOGNIZED DRUG - OTHER] PO SCH (10:07)
[2018-01-31 13:00] VITALS: BP 128/71
[2018-01-31 13:51] VITALS: BP 128/71
[2018-01-31 15:30] VITALS: BP 128/71
== END 2018-01-31 15:30 | disposition home or self-care (01) | DRG 206 ==
LOC: ER 17:44 → EDUNIT# 17:45 → TELE-WESTW 17:45 → ER 01-30 04:15
PROVIDERS: ADMIT Internal Medicine Cardiovascular Disease; ATTEND Internal Medicine Cardiovascular Disease
DX: M94.0 Chondrocostal junction syndrome [Tietze] (principal); I11.9 Hypertensive heart disease without heart failure; R07.9 Chest pain, unspecified; D64.9 Anemia, unspecified; E03.9 Hypothyroidism, unspecified; E78.5 Hyperlipidemia, unspecified; E78.00 Pure hypercholesterolemia, unspecified; J44.9 Chronic obstructive pulmonary disease, unspecified; Z82.49 Family history of ischemic heart disease and other diseases of the circulatory system
CPT/HCPCS: 36415; 71045; 80053; 81001; 84484; 85025; 85379; 85610; 85730; 93005

== ENCOUNTER → 2018-10-28 | Outpatient (CLI) | payer MEDICARE, OTHER ==
[2018-10-28 11:51] LABS: Basophils # (auto) 0 uL; Eosinophils # (auto) 0.1 uL; Eosinophils % (auto) 2.3 % (0.0-7.0); Hematocrit 35.8 % (36.0-46.0); Hemoglobin 11.7 g/dL (12.2-16.2); Lymphocytes # (auto) 1.1 uL; Lymphocytes % (auto) 23.2 % (10.0-50.0); Mean Corpuscular Hemoglobin 30.5 pg (28.0-32.0); Mean Corpuscular Hgb Conc. 32.8 g/dL (32.0-36.0); Monocytes # (auto) 0.6 uL; Monocytes % (auto) 11.9 % (0.0-12.0); Neutrophils % (auto) 61.6 % (37.0-80.0); Nucleated Red Blood Cells % 0.1 %; Platelet Count (auto) 325 10^3/uL (140-450); Red Blood Cells 3.85 10^6/uL (4.0-5.20); Red Cell Distribution Width 13.8 % (11.8-14.3); White Blood Cell 4.9 10^3/uL (4.4-10.8)
[2018-10-28 12:41] LABS: Potassium 4.1 mmol/L (3.5-5.1)
[2018-10-28 12:58] LABS: BUN/Creatinine Ratio 9.2; Calcium 8.9 mg/dL (8.5-10.1); Magnesium 2.3 mg/dL (1.6-2.6)
[2018-10-28 13:01] LABS: Free T4 (Free Thyroxine) 1.12 ng/dL (0.89-1.76)
[2018-10-28 13:02] LABS: Folate (Folic Acid) 17.43 ng/mL (5.38-24)
[2018-10-28 13:44] LABS: Urine Blood TRACE /uL (Negative); Urine Specific Gravity 1.016 (1.001-1.035)
== END | disposition home or self-care (01) ==
LOC: LAB 10:19
PROVIDERS: ATTEND Internal Medicine Cardiovascular Disease
DX: N39.0 Urinary tract infection, site not specified (principal); D52.9 Folate deficiency anemia, unspecified; I10 Essential (primary) hypertension; D64.9 Anemia, unspecified; E83.40 Disorders of magnesium metabolism, unspecified; D51.9 Vitamin B12 deficiency anemia, unspecified; E03.9 Hypothyroidism, unspecified
CPT/HCPCS: 36415; 80048; 81003; 82607; 82746; 83735; 84439; 84443; 85025; 87086

== ENCOUNTER 2018-12-02 21:37 | Emergency (ER) | payer MEDICARE, OTHER ==
[~2018-12-02] VITALS: Ht 160 cm; Wt 72.1 kg
[2018-12-02 22:11] LABS: Basophils # (auto) 0.1 uL; Basophils % (auto) 1.1 % (0.0-2.0); Eosinophils # (auto) 0.2 uL; Eosinophils % (auto) 4.3 % (0.0-7.0); Hematocrit 31.6 % (36.0-46.0); Hemoglobin 10.4 g/dL (12.2-16.2); Lymphocytes # (auto) 1.8 uL; Lymphocytes % (auto) 35.1 % (10.0-50.0); Mean Corpuscular Hemoglobin 30.6 pg (28.0-32.0); Mean Corpuscular Hgb Conc. 32.9 g/dL (32.0-36.0); Mean Corpuscular Volume 92.8 fL (80.0-100.0); Monocytes # (auto) 0.6 uL; Monocytes % (auto) 12.6 % (0.0-12.0); Neutrophils # (auto) 2.4 uL; Neutrophils % (auto) 46.9 % (37.0-80.0); Nucleated Red Blood Cells % 0.1 %; Platelet Count (auto) 305 10^3/uL (140-450); Red Blood Cells 3.41 10^6/uL (4.0-5.20); Red Cell Distribution Width 13.8 % (11.8-14.3); White Blood Cell 5.1 10^3/uL (4.4-10.8)
[2018-12-02 22:27] LABS: Alanine Aminotransferase 16 U/L (13-56); Albumin 3.6 g/dL (3.4-5.0); Anion Gap 9 (5-15); Aspartate Aminotransferase 14 U/L (15-37); BUN/Creatinine Ratio 11.3; Blood Urea Nitrogen 13 mg/dL (7-18); Calcium 8.2 mg/dL (8.5-10.1); Carbon Dioxide 23 mmol/L (21-32); Chloride 98 mmol/L (98-107); GFR African American 59 mL/min; GFR Non-African American 48 mL/min; Glucose 92 mg/dL (74-106); Magnesium 1.9 mg/dL (1.6-2.6); Potassium 3.4 mmol/L (3.5-5.1); Sodium 130 mmol/L (136-145)
[2018-12-02 22:32] LABS: Alkaline Phosphatase 76 U/L (45-117); Bilirubin, Total 0.3 mg/dL (0.2-1.0); Total Protein 6.6 g/dL (6.4-8.2)
[2018-12-03] MEDS ORDERED: SODIUM CHLORIDE 0.9% 500 ML IV ONE (02:30)
[2018-12-03 02:35] LABS: Urine WBC None Seen /hpf (0 - 5)
[2018-12-03 02:43] LABS: Urine Bacteria NONE SEEN /hpf (None Seen); Urine Blood Negative /uL (Negative); Urine Specific Gravity 1.004 (1.001-1.035)
[2018-12-03] MEDS ORDERED: ALBUTEROL SULF 2.5 MG/0.5ML(0.5%) NEB SOLN NEB ONE (05:00)
[2018-12-03] MEDS ORDERED: IPRATROPIUM BROM 0.5 MG/2.5ML INH SOL NEB ONE (05:00)
[2018-12-03 05:48] VITALS: BP 163/70
== END 2018-12-03 06:09 | disposition home or self-care (01) ==
LOC: EDBD 21:37 → ER 21:42
DX: R07.89 Other chest pain (principal); J20.9 Acute bronchitis, unspecified; M79.10 Myalgia, unspecified site; E86.0 Dehydration; J44.9 Chronic obstructive pulmonary disease, unspecified; R51 Headache; E78.5 Hyperlipidemia, unspecified; I10 Essential (primary) hypertension; Z86.39 Personal history of other endocrine, nutritional and metabolic disease; Z88.8 Allergy status to other drugs, medicaments and biological substances; Z79.899 Other long term (current) drug therapy
CPT/HCPCS: 36415; 70450; 80053; 81001; 83735; 83880; 84484; 85025; 93005; 99284; J7040; J7611; J7644

== ENCOUNTER → 2018-12-15 | Outpatient (CLI) | payer MEDICARE, OTHER | END | disposition home or self-care (01) | LOC: Rad HDHVI 09:04 | PROVIDERS: ATTEND Internal Medicine Cardiovascular Disease | DX: I70.0 Atherosclerosis of aorta (principal); I11.9 Hypertensive heart disease without heart failure; R06.02 Shortness of breath | CPT/HCPCS: 71046 ==

== ENCOUNTER 2019-06-17 06:42 | Inpatient (IN) | payer MEDICARE, OTHER ==
[~2019-06-17] VITALS: Ht 162.6 cm; Wt 73.0 kg
[2019-06-17 07:22] LABS: Basophils # (auto) 0 uL; Basophils % (auto) 0.9 % (0.0-2.0); Eosinophils # (auto) 0 uL; Hematocrit 32.5 % (36.0-46.0); Hemoglobin 11.2 g/dL (12.2-16.2); Lymphocytes # (auto) 0.8 uL; Lymphocytes % (auto) 17.6 % (10.0-50.0); Mean Corpuscular Hemoglobin 31.5 pg (28.0-32.0); Mean Corpuscular Hgb Conc. 34.6 g/dL (32.0-36.0); Mean Corpuscular Volume 91.2 fL (80.0-100.0); Monocytes # (auto) 0.3 uL; Monocytes % (auto) 6.3 % (0.0-12.0); Neutrophils # (auto) 3.4 uL; Neutrophils % (auto) 74.2 % (37.0-80.0); Nucleated Red Blood Cells % 0.1 %; Platelet Count (auto) 256 10^3/uL (140-450); Red Blood Cells 3.57 10^6/uL (4.0-5.20); Red Cell Distribution Width 13.2 % (11.8-14.3); White Blood Cell 4.5 10^3/uL (4.4-10.8)
[2019-06-17 07:36] LABS: Albumin 3.8 g/dL (3.4-5.0); Anion Gap 11 (5-15); Blood Urea Nitrogen 7 mg/dL (7-18); Calcium 8.2 mg/dL (8.5-10.1); Carbon Dioxide 25 mmol/L (21-32); Chloride 78 mmol/L (98-107); Glucose 128 mg/dL (74-106)
[2019-06-17 07:42] LABS: Alanine Aminotransferase 20 U/L (13-56); Alkaline Phosphatase 53 U/L (45-117); Aspartate Aminotransferase 24 U/L (15-37); BUN/Creatinine Ratio 7.7; Bilirubin, Total 0.6 mg/dL (0.2-1.0); GFR African American 76 mL/min; GFR Non-African American 63 mL/min; Total Protein 7.3 g/dL (6.4-8.2)
[2019-06-17 07:44] LABS: Sodium 114 mmol/L (136-145)
[2019-06-17] MEDS ORDERED: SODIUM CHL 3% 500 ML IV ONE ×2 (08:15→21:30)
[2019-06-17] MEDS ORDERED: POTASSIUM CHL 20MEQ/100ML 100 ML IV ONE (08:15)
[2019-06-17] MEDS ORDERED: ALBUTEROL SULF 2.5 MG/0.5ML(0.5%) NEB SOLN NEB PRN (09:00)
[2019-06-17] MEDS ORDERED: NITROGLYCERIN 0.4 MG SL TAB SL PRN (09:00)
[2019-06-17] MEDS ORDERED: hydrALAZINE HCL 20 MG/ML VL IV PRN (09:00)
[2019-06-17] MEDS ORDERED: MORPHINE SULF INJ 2 MG/ML SYRINGE 1ML IV PRN ×2 (09:00→10:00)
[2019-06-17] MEDS ORDERED: POTASSIUM CHLORIDE 20 MEQ, LIDOCAINE 1% (LOCAL ANESTH.) 2 ML in SODIUM CHL 0.9% 100 ML IV ONE (09:15)
[2019-06-17] MEDS ORDERED: ONDANSETRON HCL 4 MG/2 ML VIAL IV PRN ×2 (10:00)
[2019-06-17] MEDS ORDERED: PATIENTS OWN MEDICATION (Fluticasone-Salmeterol (Advair Diskus 250/50) 2 PUFF) IN SCH (10:00)
[2019-06-17] MEDS ORDERED: HYDROcodone-ACET 5/325MG TAB PO PRN (10:00)
[2019-06-17] MEDS ORDERED: ACETAMINOPHEN 500 MG TAB PO PRN (10:00)
[2019-06-17] MEDS ORDERED: amLODIPine BESYLATE 5 MG TAB PO SCH (10:00)
[2019-06-17] MEDS ORDERED: BENAZEPRIL HCL 10 MG TAB PO SCH (10:00)
[2019-06-17 10:07] VITALS: BP 170/70
[2019-06-17] MEDS: LOSARTAN POTASSIUM 50 MG TAB PO SCH (10:08)
[2019-06-17] MEDS: ALPRAZolam 0.25 MG TAB PO SCH ×2 (10:09→23:01)
[2019-06-17] MEDS: MONTELUKAST SODIUM 10 MG TAB PO SCH (10:09)
[2019-06-17] MEDS: METOPROLOL SUCCINATE XL 50 MG TAB PO SCH (10:09)
[2019-06-17] MEDS: FAMOTIDINE 20 MG TAB PO SCH (10:11)
[2019-06-17] MEDS: ALBUTEROL SULF 2.5 MG/0.5ML(0.5%) NEB SOLN NEB SCH ×2 (13:08→18:49)
[2019-06-17] MEDS: BUDESONIDE (INHALATION) 0.5 MG/2 ML NEB NEB SCH ×2 (13:08→18:49)
[2019-06-17] MEDS ORDERED: IOHEXOL 300 MG/ML 100ML BOTTLE IJ ONE (14:16)
[2019-06-17 16:28] LABS: BUN/Creatinine Ratio 6.7; Calcium 8.2 mg/dL (8.5-10.1); Potassium 3.8 mmol/L (3.5-5.1)
--- NOTE | 2019-06-17 18:43 | NUR ---
RT NOTE PT WAS SEEN BY RT FOR HHN TX IN THE ER. PT TOLERATES WELL VIA MASK. NO ADVERSE REACTION NOTED. CONT ORDERED Addendum: 06/17/19 at 1951 by Fatimah Gregory RT Amended: Links added.
[2019-06-17] MEDS: IPRATROPIUM BROM 0.5 MG/2.5ML INH SOL NEB PRN (18:49)
[2019-06-18] MEDS: ALBUTEROL SULF 2.5 MG/0.5ML(0.5%) NEB SOLN NEB SCH ×5 (00:05→23:25)
--- NOTE | 2019-06-18 00:07 | NUR ---
RT NOTE PT WAS SEEN BY RT IN THE ER FOR HHN TX. PT TOLERATES WELL VIA MASK. NO ADVERSE REACTION NOTED. CONT ORDERED
[2019-06-18] MEDS: BUDESONIDE (INHALATION) 0.5 MG/2 ML NEB NEB SCH ×2 (05:52→18:18)
[2019-06-18 07:48] LABS: BUN/Creatinine Ratio 7.5; Calcium 8.4 mg/dL (8.5-10.1); Potassium 3.7 mmol/L (3.5-5.1)
[2019-06-18] MEDS: FAMOTIDINE 20 MG TAB PO SCH (10:04)
[2019-06-18] MEDS: LOSARTAN POTASSIUM 50 MG TAB PO SCH (10:04)
[2019-06-18] MEDS: METOPROLOL SUCCINATE XL 50 MG TAB PO SCH (10:05)
[2019-06-18] MEDS: MONTELUKAST SODIUM 10 MG TAB PO SCH (10:05)
[2019-06-18] MEDS: ALPRAZolam 0.25 MG TAB PO SCH ×2 (10:05→22:07)
[2019-06-18] MEDS ORDERED: SODIUM CHLORIDE 0.9 % NEB SOLN 3ML NEB ONE (10:57)
--- NOTE | 2019-06-18 15:20 | NUR ---
RECEIVED REPORT FROM PIEDAD HILL
[2019-06-18 15:30] VITALS: BP 120/73
--- NOTE | 2019-06-18 15:30 | NUR ---
Telemetry admit from ER MARIBELASHLIE Velasquez admitted to Telemetry unit after SBAR received. Patient oriented to Tammi De La Torre, primary RN, unit, room, bed, and unit policies regarding patient care and visiting hours. Patient now on continuous telemetry monitoring, tele box # 43 and telemetry reading on arrival to unit is SINUS RHYTHM AT 69BPM. Patient placed on bedside oxygen, weighed by bedscale and encouraged to call if they need something. All questions and concerns addressed, patient verbalized understanding. Note:PT IS AWAKE AND ALERT, NO SIGNS OF DISTRESS AT THIS TIME, WILL CONTINUE TO MONITOR.
[2019-06-18 16:15] VITALS: BP 120/73
--- NOTE | 2019-06-18 18:40 | NUR ---
MRSA SWAB SENT TO LAB
--- NOTE | 2019-06-18 19:00 | NUR ---
Opening Shift Note Assumed care of patient, awake and alert. No S/S of distress/SOB or pain. Instructed on POC and to call for assist PRN, will continue to monitor for changes Q1hr and PRN.
[2019-06-18 22:00] VITALS: BP 131/53
[2019-06-19 05:00] VITALS: BP 127/50
[2019-06-19] MEDS: BUDESONIDE (INHALATION) 0.5 MG/2 ML NEB NEB SCH ×2 (07:25→19:07)
[2019-06-19] MEDS: ALBUTEROL SULF 2.5 MG/0.5ML(0.5%) NEB SOLN NEB SCH ×3 (07:25→19:08)
[2019-06-19] MEDS ORDERED: LEVO50TA7 PO (08:07)
[2019-06-19 08:43] VITALS: BP 144/54
[2019-06-19] MEDS: MONTELUKAST SODIUM 10 MG TAB PO SCH (10:09)
[2019-06-19] MEDS: ALPRAZolam 0.25 MG TAB PO SCH ×2 (10:09→22:00)
[2019-06-19] MEDS: LOSARTAN POTASSIUM 50 MG TAB PO SCH (10:09)
[2019-06-19] MEDS: METOPROLOL SUCCINATE XL 50 MG TAB PO SCH (10:10)
[2019-06-19] MEDS: FAMOTIDINE 20 MG TAB PO SCH (10:12)
[2019-06-19] MEDS ORDERED: AMLO5TAB15 PO (10:19)
[2019-06-19 13:03] VITALS: BP 133/62
--- NOTE | 2019-06-19 15:54 | NUR ---
Pt seen by Dr. Echavarria He ordered fluid restriction 1500/24hrs, pt made aware she is possibly going home tomorrow.
[2019-06-19 16:42] VITALS: BP 150/69
[2019-06-19 21:46] VITALS: BP 144/73
--- NOTE | 2019-06-19 22:15 | NUR ---
IV removal due to infiltration IV to right hand DC'd with clean sterile technique, catheter fully intact. Pressure dressing applied to site. Patient tolerated well. RN advised patient of need for new IV. Patient declined new IV and teaching was provided on the risk of not having an IV site. Patient verbalized understanding. RN will continue to monitor and assess patient.
[2019-06-20] MEDS: IPRATROPIUM BROM 0.5 MG/2.5ML INH SOL NEB PRN (00:14)
[2019-06-20] MEDS: ALBUTEROL SULF 2.5 MG/0.5ML(0.5%) NEB SOLN NEB SCH ×3 (00:14→11:47)
--- NOTE | 2019-06-20 02:00 | NUR ---
Care endorsed to Josefina HERBERT.
[2019-06-20 04:49] VITALS: BP 160/57
[2019-06-20 09:00] VITALS: BP 124/73
[2019-06-20] MEDS: BUDESONIDE (INHALATION) 0.5 MG/2 ML NEB NEB SCH (10:00)
[2019-06-20] MEDS: MONTELUKAST SODIUM 10 MG TAB PO SCH (10:20)
[2019-06-20] MEDS: ALPRAZolam 0.25 MG TAB PO SCH (10:20)
[2019-06-20] MEDS: FAMOTIDINE 20 MG TAB PO SCH (10:20)
[2019-06-20] MEDS: LOSARTAN POTASSIUM 50 MG TAB PO SCH (10:21)
[2019-06-20] MEDS: METOPROLOL SUCCINATE XL 50 MG TAB PO SCH (10:21)
[2019-06-20 11:06] VITALS: BP 124/73
[2019-06-20 13:06] VITALS: BP 124/73
[2019-06-20 15:11] LABS: Basophils # (auto) 0.1 uL; Basophils % (auto) 1.6 % (0.0-2.0); Eosinophils # (auto) 0.2 uL; Eosinophils % (auto) 4.8 % (0.0-7.0); Hematocrit 32.4 % (36.0-46.0); Hemoglobin 10.9 g/dL (12.2-16.2); Lymphocytes # (auto) 1.4 uL; Lymphocytes % (auto) 31.8 % (10.0-50.0); Mean Corpuscular Hemoglobin 31.3 pg (28.0-32.0); Mean Corpuscular Hgb Conc. 33.6 g/dL (32.0-36.0); Monocytes # (auto) 0.5 uL; Monocytes % (auto) 11.8 % (0.0-12.0); Neutrophils # (auto) 2.2 uL; Nucleated Red Blood Cells % 0.1 %; Platelet Count (auto) 283 10^3/uL (140-450); Red Blood Cells 3.49 10^6/uL (4.0-5.20); Red Cell Distribution Width 14.4 % (11.8-14.3); White Blood Cell 4.4 10^3/uL (4.4-10.8)
[2019-06-20 15:30] LABS: Albumin 3.1 g/dL (3.4-5.0); Calcium 8.5 mg/dL (8.5-10.1); Potassium 4.1 mmol/L (3.5-5.1)
[2019-06-20 15:33] LABS: BUN/Creatinine Ratio 11.9
[2019-06-20 15:36] LABS: Bilirubin, Total 0.3 mg/dL (0.2-1.0); Total Protein 6.6 g/dL (6.4-8.2)
--- NOTE | 2019-06-20 15:45 | NUR ---
PAGED MD Shameka GUTIERREZ WITH NEW LAB RESULTS AWAITING CALL BACK
--- NOTE | 2019-06-20 16:45 | NUR ---
RETURNED PAGE PT IS OKAY TO D/C HOME
--- NOTE | 2019-06-20 16:58 | NUR ---
Discharge instructions given as ordered. Encourage to follow up with PMD as instructed. All questions and concerns addressed. Patient verbalized understanding. Medication reconciliation form completed and copy given to patient. H. IV removed with catheter intact, pressure dressing applied. Telemetry unit returned to ICU. Patient taken to vehicle via wheelchair with all personal belongings, accompanied by staff and family member. No distress noted at time of departure.
== END 2019-06-20 16:50 | disposition home or self-care (01) | DRG 641 ==
LOC: ER 06:42 → EDUNIT# 06:42 → EDBD 06:42 → OVERFLOW 06:43 → TELE-CENTR 06-18 15:26
PROVIDERS: ADMIT Nurse Practitioner Acute Care; ATTEND Internal Medicine Cardiovascular Disease
DX: E87.1 Hypo-osmolality and hyponatremia (principal); I24.9 Acute ischemic heart disease, unspecified; E86.0 Dehydration; E87.6 Hypokalemia; D64.9 Anemia, unspecified; E87.8 Other disorders of electrolyte and fluid balance, not elsewhere classified; I10 Essential (primary) hypertension; G89.29 Other chronic pain; J44.9 Chronic obstructive pulmonary disease, unspecified; I25.10 Atherosclerotic heart disease of native coronary artery without angina pectoris; E78.5 Hyperlipidemia, unspecified; Z82.49 Family history of ischemic heart disease and other diseases of the circulatory system; Z88.8 Allergy status to other drugs, medicaments and biological substances; Z90.710 Acquired absence of both cervix and uterus
CPT/HCPCS: 36415; 71045; 71260; 74177; 80048; 80053; 83880; 83930; 83935; 84300; 84484; 85025; 87081; 93005; 94640; G0378; J2001; J2405; J3480

== ENCOUNTER → 2019-07-10 | Outpatient (CLI) | payer MEDICARE, OTHER ==
[~2019-07-10] MED LIST changes: +AMLO5TAB15 PO; -LEVO25TA6 PO; +LEVO50TA7 PO
[2019-07-10 16:11] LABS: Albumin 3.7 g/dL (3.4-5.0); Anion Gap 10 (5-15); Blood Urea Nitrogen 10 mg/dL (7-18); Calcium 8.7 mg/dL (8.5-10.1); Carbon Dioxide 23 mmol/L (21-32); Chloride 104 mmol/L (98-107); Glucose 86 mg/dL (74-106); Potassium 3.9 mmol/L (3.5-5.1); Sodium 137 mmol/L (136-145)
[2019-07-10 16:17] LABS: Alanine Aminotransferase 17 U/L (13-56); Alkaline Phosphatase 61 U/L (45-117); Aspartate Aminotransferase 16 U/L (15-37); BUN/Creatinine Ratio 8.6; Bilirubin, Direct < 0.1 mg/dL (0-0.2); Bilirubin, Total 0.2 mg/dL (0.2-1.0); Cholesterol 257 mg/dL (< 200); GFR African American 58 mL/min; GFR Non-African American 48 mL/min; HDL Cholesterol 107 mg/dL (40-59); LDL Cholesterol 139 mg/dL (< 100); Total Protein 7.5 g/dL (6.4-8.2); Triglycerides 78 mg/dL (< 150)
[2019-07-10 16:38] LABS: Urine Blood Negative /uL (Negative); Urine Specific Gravity 1.016 (1.001-1.035)
[2019-07-10 16:47] LABS: Basophils # (auto) 0.1 uL; Basophils % (auto) 1.3 % (0.0-2.0); Eosinophils # (auto) 0.1 uL; Eosinophils % (auto) 1.9 % (0.0-7.0); Hematocrit 33.8 % (36.0-46.0); Hemoglobin 11.4 g/dL (12.2-16.2); Lymphocytes # (auto) 1.2 uL; Mean Corpuscular Hemoglobin 32.2 pg (28.0-32.0); Mean Corpuscular Hgb Conc. 33.9 g/dL (32.0-36.0); Monocytes # (auto) 0.4 uL; Monocytes % (auto) 10.1 % (0.0-12.0); Neutrophils # (auto) 2.3 uL; Neutrophils % (auto) 56.7 % (37.0-80.0); Nucleated Red Blood Cells % 0.2 %; Platelet Count (auto) 347 10^3/uL (140-450); Red Blood Cells 3.55 10^6/uL (4.0-5.20); Red Cell Distribution Width 14.9 % (11.8-14.3)
== END | disposition home or self-care (01) ==
LOC: LAB 11:43
PROVIDERS: ATTEND Internal Medicine Cardiovascular Disease
DX: K74.1 Hepatic sclerosis (principal); E03.9 Hypothyroidism, unspecified; K90.9 Intestinal malabsorption, unspecified; N39.0 Urinary tract infection, site not specified; Z79.899 Other long term (current) drug therapy
CPT/HCPCS: 36415; 80048; 80061; 80076; 81003; 82306; 83036; 84443; 85025; 87086

== ENCOUNTER → 2019-07-20 | Outpatient (CLI) | payer MEDICARE, OTHER | END | disposition home or self-care (01) | LOC: Rad HDHVI 14:00 | PROVIDERS: ATTEND Internal Medicine Cardiovascular Disease | DX: I08.8 Other rheumatic multiple valve diseases (principal); J44.9 Chronic obstructive pulmonary disease, unspecified; R07.89 Other chest pain; I10 Essential (primary) hypertension | CPT/HCPCS: 93306 ==

== ENCOUNTER → 2019-07-23 | Outpatient (CLI) | payer MEDICARE, OTHER ==
[~2019-07-23] VITALS: Ht 160 cm; Wt 69.4 kg
[~2019-07-23] MED LIST changes: +ADENOSINE 58 MG in GIVE UN-DILUTED 0 ML IV ONE; +ADENOSINE 90 MG/30 ML INJ IV ONE
== END | disposition home or self-care (01) ==
LOC: Rad HDHVI 09:05
PROVIDERS: ATTEND Internal Medicine Cardiovascular Disease
DX: R07.9 Chest pain, unspecified (principal); E78.00 Pure hypercholesterolemia, unspecified; I10 Essential (primary) hypertension
CPT/HCPCS: 78452; 93005; 96374; 96375; A9500; J0153

== ENCOUNTER 2019-08-11 14:33 | Inpatient (IN) | payer MEDICARE, OTHER ==
[~2019-08-11] VITALS: Ht 157.5 cm; Wt 68.8 kg
[~2019-08-11 14:33] MED LIST changes: -ADENOSINE 58 MG in GIVE UN-DILUTED 0 ML IV ONE; -ADENOSINE 90 MG/30 ML INJ IV ONE; +CYCL1TAB18 PO; +FERR-20 PO; +FLUT250M2 INH; +IPRA0.00 IN; +LEVO25TA49 PO; +MECL-87 PO; +METH250T21 PO; +MONT10TA34 PO; +TELM40TA11 PO
[2019-08-11 15:09] LABS: Basophils # (auto) 0.1 uL; Basophils % (auto) 1.5 % (0.0-2.0); Eosinophils # (auto) 0.1 uL; Hemoglobin 11.5 g/dL (12.2-16.2); Lymphocytes # (auto) 1.2 uL; Lymphocytes % (auto) 19.8 % (10.0-50.0); Mean Corpuscular Hemoglobin 31.4 pg (28.0-32.0); Mean Corpuscular Hgb Conc. 33.8 g/dL (32.0-36.0); Mean Corpuscular Volume 92.9 fL (80.0-100.0); Monocytes # (auto) 0.5 uL; Monocytes % (auto) 8.2 % (0.0-12.0); Neutrophils # (auto) 4.2 uL; Neutrophils % (auto) 68.5 % (37.0-80.0); Platelet Count (auto) 313 10^3/uL (140-450); Red Blood Cells 3.66 10^6/uL (4.0-5.20); Red Cell Distribution Width 13.7 % (11.8-14.3); White Blood Cell 6.2 10^3/uL (4.4-10.8)
[2019-08-11 15:28] LABS: Albumin 3.7 g/dL (3.4-5.0); Anion Gap 3 (5-15); Blood Urea Nitrogen 13 mg/dL (7-18); Carbon Dioxide 31 mmol/L (21-32); Chloride 104 mmol/L (98-107); Glucose 101 mg/dL (74-106); Magnesium 2.4 mg/dL (1.6-2.6); Potassium 4.1 mmol/L (3.5-5.1); Sodium 138 mmol/L (136-145)
[2019-08-11 15:34] LABS: Alanine Aminotransferase 12 U/L (13-56); Alkaline Phosphatase 53 U/L (45-117); Aspartate Aminotransferase 9 U/L (15-37); BUN/Creatinine Ratio 11.5; Bilirubin, Total 0.2 mg/dL (0.2-1.0); GFR African American 60 mL/min; GFR Non-African American 49 mL/min; Total Protein 7.2 g/dL (6.4-8.2)
[2019-08-11] MEDS ORDERED: FUROSEMIDE INJECTION 100 MG in SODIUM CHL 0.9% 90 ML IV ONE (19:00)
[2019-08-11] MEDS ORDERED: BENAZEPRIL HCL 10 MG TAB PO ONE (19:00)
[2019-08-11] MEDS ORDERED: NITROGLYCERIN 0.4 MG SL TAB SL PRN (19:00)
[2019-08-11] MEDS ORDERED: MORPHINE SULF INJ 2 MG/ML SYRINGE 1ML IV PRN (19:00)
[2019-08-11] MEDS ORDERED: EZET10TA22 (19:09)
[2019-08-11] MEDS ORDERED: ALPR0.255 (19:09)
[2019-08-11] MEDS ORDERED: LEVO50TA7 (19:09)
[2019-08-11] MEDS ORDERED: ASP81EC (19:09)
[2019-08-11] MEDS ORDERED: METO-6 (19:09)
[2019-08-11] MEDS ORDERED: MECLIZINE HCL 25 MG TAB PO PRN (19:15)
[2019-08-11] MEDS ORDERED: FUROSEMIDE INJECTION 10 ML ONE (20:21)
[2019-08-11] MEDS: HYDROcodone-ACET 5/325MG TAB PO PRN (20:54)
[2019-08-11 21:13] VITALS: BP 159/66
[2019-08-11 22:00] VITALS: BP 161/70
--- NOTE | 2019-08-11 22:30 | NUR ---
Telemetry admit from ER ASHLIE LÓPEZ admitted to Telemetry unit. Patient oriented to Dainelle Aragon, primary RN, unit, room, bed, and unit policies regarding patient care and visiting hours. Patient now on continuous telemetry monitoring, tele box #3 and telemetry reading on arrival to unit is SR. Patient placed on bedside oxygen, weighed by bed scale and encouraged to call if they need something. All questions and concerns addressed, patient verbalized understanding.
[2019-08-11] MEDS: POTASSIUM CHL 20 Meq TABLET PO SCH (22:54)
[2019-08-11] MEDS: IPRATROPIUM BROM 0.5 MG/2.5ML INH SOL NEB SCH (23:02)
[2019-08-11 23:30] VITALS: BP 161/70
[2019-08-12 05:00] VITALS: BP 155/72
[2019-08-12 06:23] LABS: Albumin 3.6 g/dL (3.4-5.0); Calcium 9.2 mg/dL (8.5-10.1); Potassium 3.6 mmol/L (3.5-5.1)
[2019-08-12 06:27] LABS: Bilirubin, Total 0.3 mg/dL (0.2-1.0); Total Protein 7.3 g/dL (6.4-8.2)
[2019-08-12] MEDS: POTASSIUM CHL 20 Meq TABLET PO SCH ×2 (06:29→14:32)
[2019-08-12] MEDS: IPRATROPIUM BROM 0.5 MG/2.5ML INH SOL NEB SCH ×3 (06:33→19:21)
[2019-08-12] MEDS ORDERED: LEVOTHYROXINE SODIUM 25 MCG TAB PO SCH (07:00)
--- NOTE | 2019-08-12 07:30 | NUR ---
RECEIVED REPORT FROM NIGHT NURSE. PATIENT RESTING IN BED, NO DISTRESS NOTED. WILL CONTINUE TO MONITOR.
[2019-08-12] MEDS: HYDROcodone-ACET 5/325MG TAB PO PRN (08:18)
--- NOTE | 2019-08-12 08:30 | NUR ---
PATIENT COMPLAINING OF NAUSEA AND LEG CRAMPING. WILL NOTIFY DOCTOR.
--- NOTE | 2019-08-12 08:44 | NUR ---
SPOKE WITH DOCTOR GUTIERREZ, ORDERS RECEIVED, READ BACK, WILL PLACE AND CARRY OUT.
[2019-08-12 09:00] VITALS: BP 129/52
[2019-08-12] MEDS ORDERED: POTASSIUM CHL 20 Meq TABLET PO ONE ×2 (09:00→22:15)
[2019-08-12] MEDS ORDERED: ONDANSETRON HCL 4 MG/2 ML VIAL IV PRN (09:00)
[2019-08-12] MEDS: ASPirin-EC 81 mg tab PO SCH (09:27)
[2019-08-12] MEDS: MONTELUKAST SODIUM 10 MG TAB PO SCH (09:27)
[2019-08-12] MEDS: METOPROLOL SUCCINATE XL 50 MG TAB PO SCH (09:27)
[2019-08-12] MEDS: MAGNESIUM OXIDE 400 MG TAB PO SCH ×2 (09:27→22:36)
--- NOTE | 2019-08-12 09:30 | NUR ---
PATIENT REFUSING LASIX DRIP. STATES THAT SHE THINKS THAT THE CRAMPING IS BEING CAUSED BY THE LASIX DRIP. EDUCATION PROVIDED. PATIENT INSISTS THAT IT BE TURNED OFF. LASIX DRIP TURNED OFF, WILL CONTINUE TO MONITOR.
[2019-08-12 10:14] LABS: Potassium 3.9 mmol/L (3.5-5.1)
[2019-08-12 10:22] LABS: BUN/Creatinine Ratio 9.9; Calcium 9.7 mg/dL (8.5-10.1)
[2019-08-12 13:00] VITALS: BP 155/74
--- NOTE | 2019-08-12 13:00 | NUR ---
PATIENT STATES THAT SHE WANTS TO START THE LASIX DRIP AGAIN AND SEE IF SHE GETS CRAMPS. LASIX DRIP RUNNING AT 4ML/HR. WILL CONTINUE TO MONITOR.
[2019-08-12 17:00] VITALS: BP 145/61
--- NOTE | 2019-08-12 18:00 | NUR ---
PATIENT REFUSING LASIX DRIP. STATES THAT SHE IS GETTING THE CRAMPS AGAIN. EDUCATION PROVIDED. PATIENT INSISTS THAT IT BE TURNED OFF AGAIN. LASIX DRIP TURNED OFF, WILL CONTINUE TO MONITOR.
--- NOTE | 2019-08-12 18:25 | NUR ---
DR. GUTIERREZ AT BEDSIDE.
--- NOTE | 2019-08-12 19:30 | NUR ---
OPENING SHIFT NOTE Assumed care of patient awake and alert x4. Patient denies pain or shortness of breath at this time. Instructed on plan of care and to call for assistance as needed, patient verbalized understanding. Bed is locked in lowest position, side rails x 2 are up, call light is within reach, and bed alarm is on.
[2019-08-12 22:00] VITALS: BP 117/60
--- NOTE | 2019-08-12 22:06 | NUR ---
RECEIVED ORDERS FROM BRENDA Notified Dr. Echavarria that patient is complaining of generalized cramps and a nonproductive cough and is requesting medication for her cramps and nonproductive cough. Orders received for Potassium 60meq PO once, BMP lab draw, and Robitussin AC 2tsp PO Q6 PRN. Order verified. Will carry out orders as received.
[2019-08-12] MEDS: guaiFENesin-CODEINE Liq 5 ML UD PO PRN (22:36)
[2019-08-12 22:45] LABS: BUN/Creatinine Ratio 12.7; Calcium 9.4 mg/dL (8.5-10.1); Potassium 4.3 mmol/L (3.5-5.1)
[2019-08-13] MEDS: guaiFENesin-CODEINE Liq 5 ML UD PO PRN ×2 (01:18→12:08)
[2019-08-13] MEDS: HYDROcodone-ACET 5/325MG TAB PO PRN ×2 (01:18→10:04)
[2019-08-13 05:35] VITALS: BP 121/56
[2019-08-13] MEDS ORDERED: LEVOTHYROXINE SODIUM 50 MCG TAB PO SCH (07:00)
[2019-08-13] MEDS: IPRATROPIUM BROM 0.5 MG/2.5ML INH SOL NEB SCH ×2 (07:19→14:08)
--- NOTE | 2019-08-13 07:38 | NUR ---
Opening Shift Note Assumed care of patient, awake and alert. No S/S of distress/SOB or pain. Instructed on POC and to call for assist PRN call light within reach and patient comfortable, will continue to monitor for changes Q1hr and PRN.
[2019-08-13 08:00] VITALS: BP 116/59
[2019-08-13 08:44] VITALS: BP 116/59
[2019-08-13] MEDS: ASPirin-EC 81 mg tab PO SCH (10:04)
[2019-08-13] MEDS: MONTELUKAST SODIUM 10 MG TAB PO SCH (10:04)
[2019-08-13] MEDS: METOPROLOL SUCCINATE XL 50 MG TAB PO SCH (10:05)
[2019-08-13] MEDS: MAGNESIUM OXIDE 400 MG TAB PO SCH (10:05)
[2019-08-13 12:16] VITALS: BP 137/61
[2019-08-13 16:26] VITALS: BP 144/74
--- NOTE | 2019-08-13 16:58 | NUR ---
PRESCRIPTIONS CALLED INTO PHARMACY ON FILE.
== END 2019-08-13 18:20 | disposition home or self-care (01) | DRG 291 ==
LOC: EDBD 14:33 → ER 14:33 → TELE 14:34 → MERGE 14:34 → TELE-EAST 22:15
PROVIDERS: ADMIT Internal Medicine Cardiovascular Disease; ATTEND Internal Medicine Cardiovascular Disease
DX: I11.0 Hypertensive heart disease with heart failure (principal); I50.31 Acute diastolic (congestive) heart failure; E87.1 Hypo-osmolality and hyponatremia; I24.9 Acute ischemic heart disease, unspecified; D64.9 Anemia, unspecified; Z99.81 Dependence on supplemental oxygen; E87.6 Hypokalemia; E78.5 Hyperlipidemia, unspecified; E03.9 Hypothyroidism, unspecified; Z90.710 Acquired absence of both cervix and uterus; J44.9 Chronic obstructive pulmonary disease, unspecified; R60.1 Generalized edema
CPT/HCPCS: 36415; 71045; 80048; 80053; 83735; 83880; 84484; 85025; 93005; 94640; 96365; 96375; G0378; J2405

== ENCOUNTER → 2019-08-21 | Outpatient (CLI) | payer MEDICARE, OTHER ==
[~2019-08-21] MED LIST changes: +ALPR0.255; +ASP81EC; +EZET10TA22; +LEVO50TA7; +METO-6
[2019-08-21 16:03] LABS: Calcium 9.3 mg/dL (8.5-10.1); Potassium 3.5 mmol/L (3.5-5.1)
[2019-08-21 16:06] LABS: BUN/Creatinine Ratio 10.5
== END | disposition home or self-care (01) ==
LOC: LAB 13:04
PROVIDERS: ATTEND Internal Medicine Cardiovascular Disease
DX: I50.9 Heart failure, unspecified (principal)
CPT/HCPCS: 36415; 80048; 83880

== ENCOUNTER → 2019-08-31 | Outpatient (CLI) | payer MEDICARE, OTHER ==
[~2019-08-31] MED LIST changes: +KETOROLAC TROMETH 60MG/2ML VIAL IM ONE; +KETOROLAC TROMETH 60MG/2ML VIAL ONE; +READI-CAT 2 (BARIUM SULF)(VANILLA SMOOTHIE) 450ML ONE
[2019-08-31 11:56] VITALS: BP 140/64
--- NOTE | 2019-08-31 11:56 | NUR ---
CHF PT ARRIVED AT THE [facility] FOR TX AND CHECK UP. PT CO PAIN 05/14.TO FROM OF ABDOMEN. CT DONE IN JUNE AND LABS ON 08/21/19. UPDATED MD GUTIERREZ ORDERS RECEIVED AND NOTED. VSS PT NOT IN DISTRESS
--- NOTE | 2019-08-31 13:30 | NUR ---
GI PT GIVEN SAMPLES OF DEXILANT IST DOSE NOW AND CT ABDOMEN/PELVIS WITH ORAL CONTRAST ORDERED.
--- NOTE | 2019-08-31 14:06 | NUR ---
Discharge Instructions See e-MAR for any mediations given with this visit. Patient education given on disease process. Patient verbalized understanding. Previous labs reviewed. Patient discharged in stable condition with after care instructions and follow up appointment. MEDICATIONS TORADOL 30 MG IM LEFT GLUTE LOT # [id number] EXP 10/23 Addendum: 08/31/19 at 1509 by JANICE BEY RN CA DISCHARGE [id number]
--- NOTE | 2019-08-31 14:17 | NUR ---
PAIN PAIN DECREASING 8/10 FROM PAIN MEDS TAKEN AT HOME. ADDITIONAL TORADOL GIVEN 30MG IM.
[2019-08-31 14:39] VITALS: BP 128/71
== END | disposition home or self-care (01) ==
LOC: Rad HDHVI 12:24
PROVIDERS: ATTEND Internal Medicine Cardiovascular Disease
DX: M43.16 Spondylolisthesis, lumbar region (principal); I70.8 Atherosclerosis of other arteries; R10.9 Unspecified abdominal pain; I11.0 Hypertensive heart disease with heart failure; I50.9 Heart failure, unspecified; I50.32 Chronic diastolic (congestive) heart failure; J44.9 Chronic obstructive pulmonary disease, unspecified; E78.5 Hyperlipidemia, unspecified; E03.9 Hypothyroidism, unspecified; E78.00 Pure hypercholesterolemia, unspecified; Z90.710 Acquired absence of both cervix and uterus; Z99.81 Dependence on supplemental oxygen
CPT/HCPCS: 74176; 96372; G0463; J1885

== ENCOUNTER → 2020-03-24 | Outpatient (CLI) | payer MEDICARE, OTHER ==
[~2020-03-24] MED LIST changes: -ASP81EC; +ASPI-394; +CYCL10TA6 PO; -CYCL1TAB18 PO; -KETOROLAC TROMETH 60MG/2ML VIAL IM ONE; -KETOROLAC TROMETH 60MG/2ML VIAL ONE; -MECL-87 PO; +MECL25TA18 PO; -MET250T PO; +METH250T4 PO; -READI-CAT 2 (BARIUM SULF)(VANILLA SMOOTHIE) 450ML ONE
[2020-03-24 08:43] LABS: Basophils # (auto) 0 10 ^3/uL (0-0.2); Basophils % (auto) 1.1 % (0.0-2.0); Eosinophils # (auto) 0.1 10 ^3/uL (0-0.8); Hematocrit 36.1 % (36.0-46.0); Hemoglobin 11.6 g/dL (12.2-16.2); Lymphocytes # (auto) 1.8 10 ^3/uL (0.4-5.4); Lymphocytes % (auto) 40.5 % (10.0-50.0); Mean Corpuscular Hemoglobin 29.3 pg (28.0-32.0); Mean Corpuscular Hgb Conc. 32.1 g/dL (32.0-36.0); Monocytes # (auto) 0.5 10 ^3/uL (0-1.3); Monocytes % (auto) 10.5 % (0.0-12.0); Neutrophils % (auto) 44.9 % (37.0-80.0); Platelet Count (auto) 323 10^3/uL (140-450); Red Blood Cells 3.97 10^6/uL (4.0-5.20); White Blood Cell 4.4 10^3/uL (4.4-10.8)
[2020-03-24 09:03] LABS: BUN/Creatinine Ratio 10.8; Calcium 8.9 mg/dL (8.5-10.1); Potassium 4.2 mmol/L (3.5-5.1)
== END | disposition home or self-care (01) ==
LOC: LAB 08:32
PROVIDERS: ATTEND Internal Medicine Cardiovascular Disease
DX: I10 Essential (primary) hypertension (principal); D64.9 Anemia, unspecified
CPT/HCPCS: 36415; 80048; 85025

== ENCOUNTER → 2020-09-02 | Outpatient (CLI) | payer MEDICARE, OTHER ==
[~2020-09-02] MED LIST changes: +AMLO-489 PO; -AMLO5TAB15 PO
== END | disposition home or self-care (01) ==
LOC: Rad HDHVI 11:12
PROVIDERS: ATTEND Internal Medicine Cardiovascular Disease
DX: I67.2 Cerebral atherosclerosis (principal); I67.82 Cerebral ischemia; G31.89 Other specified degenerative diseases of nervous system; G93.89 Other specified disorders of brain; I70.90 Unspecified atherosclerosis; R42 Dizziness and giddiness
CPT/HCPCS: 70450

== ENCOUNTER → 2020-09-07 | Outpatient (CLI) | payer MEDICARE, OTHER | END | disposition home or self-care (01) | LOC: Rad HDHVI 10:51 | PROVIDERS: ATTEND Internal Medicine Cardiovascular Disease | DX: I10 Essential (primary) hypertension (principal); R20.2 Paresthesia of skin; D64.9 Anemia, unspecified | CPT/HCPCS: 93880; J7030 ==

== ENCOUNTER → 2020-09-13 | Outpatient (CLI) | payer MEDICARE, OTHER ==
[2020-09-13 15:40] LABS: Basophils # (auto) 0 10 ^3/uL (0-0.2); Basophils % (auto) 0.8 % (0.0-2.0); Eosinophils # (auto) 0.1 10 ^3/uL (0-0.8); Hematocrit 34.3 % (36.0-46.0); Hemoglobin 11.2 g/dL (12.2-16.2); Lymphocytes # (auto) 1.9 10 ^3/uL (0.4-5.4); Lymphocytes % (auto) 41.8 % (10.0-50.0); Mean Corpuscular Hgb Conc. 32.6 g/dL (32.0-36.0); Mean Corpuscular Volume 92.2 fL (80.0-100.0); Monocytes # (auto) 0.6 10 ^3/uL (0-1.3); Monocytes % (auto) 12.5 % (0.0-12.0); Neutrophils # (auto) 1.9 10 ^3/uL (1.6-8.6); Neutrophils % (auto) 42.9 % (37.0-80.0); Nucleated Red Blood Cells % 0.1 %; Platelet Count (auto) 319 10^3/uL (140-450); Red Blood Cells 3.73 10^6/uL (4.0-5.20); Red Cell Distribution Width 15.6 % (11.8-14.3); White Blood Cell 4.5 10^3/uL (4.4-10.8)
[2020-09-13 15:59] LABS: BUN/Creatinine Ratio 8.7; Calcium 8.5 mg/dL (8.5-10.1); Potassium 4.1 mmol/L (3.5-5.1)
== END | disposition home or self-care (01) ==
LOC: LAB 10:47
PROVIDERS: ATTEND Internal Medicine Cardiovascular Disease
DX: I10 Essential (primary) hypertension (principal); D64.9 Anemia, unspecified
CPT/HCPCS: 36415; 80048; 85025

== ENCOUNTER → 2021-01-09 | Outpatient (CLI) | payer MEDICARE, OTHER ==
[~2021-01-09] MED LIST changes: -MONT10TA34 PO; +MONT10TA42 PO
== END | disposition home or self-care (01) ==
LOC: Rad HDHVI 09:18
PROVIDERS: ATTEND Internal Medicine Cardiovascular Disease
DX: I11.0 Hypertensive heart disease with heart failure (principal); I50.33 Acute on chronic diastolic (congestive) heart failure
CPT/HCPCS: 93306

== ENCOUNTER → 2021-02-17 | Outpatient (CLI) | payer MEDICARE, OTHER | END | disposition home or self-care (01) | LOC: Rad HDHVI 13:59 | PROVIDERS: ATTEND Internal Medicine Cardiovascular Disease | DX: M47.812 Spondylosis without myelopathy or radiculopathy, cervical region (principal); M43.12 Spondylolisthesis, cervical region; M50.31 Other cervical disc degeneration, high cervical region; M50.21 Other cervical disc displacement, high cervical region; M41.86 Other forms of scoliosis, lumbar region; M47.815 Spondylosis without myelopathy or radiculopathy, thoracolumbar region; M48.05 Spinal stenosis, thoracolumbar region; M43.15 Spondylolisthesis, thoracolumbar region; M48.061 Spinal stenosis, lumbar region without neurogenic claudication; M47.817 Spondylosis without myelopathy or radiculopathy, lumbosacral region; M48.07 Spinal stenosis, lumbosacral region; M51.26 Other intervertebral disc displacement, lumbar region | CPT/HCPCS: 72125; 72131 ==

== ENCOUNTER → 2021-12-19 | Outpatient (CLI) | payer MEDICARE, OTHER ==
[~2021-12-19] MED LIST changes: +CYCL-839 PO; -CYCL10TA6 PO; +KETOROLAC TROMETH 60MG/2ML VIAL IM ONE; +KETOROLAC TROMETH 60MG/2ML VIAL ONE; -METH250T4 PO; +METH250T8 PO; +MONT-8 PO; -MONT10TA42 PO
[2021-12-19 11:05] VITALS: BP 149/62
[2021-12-19 12:41] VITALS: BP 147/50
[2021-12-19 15:51] LABS: Urine Blood Negative /uL (Negative); Urine Specific Gravity 1.017 (1.001-1.035)
[2021-12-19 15:53] LABS: Basophils # (auto) 0 10 ^3/uL (0-0.2); Basophils % (auto) 1.2 % (0.0-2.0); Eosinophils # (auto) 0.1 10 ^3/uL (0-0.8); Eosinophils % (auto) 2.9 % (0.0-7.0); Hematocrit 31.9 % (36.0-46.0); Hemoglobin 11.1 g/dL (12.2-16.2); Lymphocytes # (auto) 0.9 10 ^3/uL (0.4-5.4); Lymphocytes % (auto) 36.8 % (10.0-50.0); Mean Corpuscular Hemoglobin 31.9 pg (28.0-32.0); Mean Corpuscular Hgb Conc. 34.7 g/dL (32.0-36.0); Mean Corpuscular Volume 91.8 fL (80.0-100.0); Monocytes # (auto) 0.3 10 ^3/uL (0-1.3); Monocytes % (auto) 13.4 % (0.0-12.0); Neutrophils # (auto) 1.2 10 ^3/uL (1.6-8.6); Neutrophils % (auto) 45.7 % (37.0-80.0); Nucleated Red Blood Cells % 0.1 %; Red Blood Cells 3.48 10^6/uL (4.0-5.20); Red Cell Distribution Width 13.9 % (11.8-14.3); White Blood Cell 2.5 10^3/uL (4.4-10.8)
[2021-12-19 16:04] LABS: Magnesium 2.1 mg/dL (1.6-2.6); Potassium 3.7 mmol/L (3.5-5.1)
[2021-12-19 16:10] LABS: Free T4 (Free Thyroxine) 1.02 ng/dL (0.89-1.76)
[2021-12-19 16:11] LABS: Albumin 4.1 g/dL (3.4-5.0); BUN/Creatinine Ratio 12.9; Bilirubin, Total 0.4 mg/dL (0.2-1.0); Calcium 9.5 mg/dL (8.5-10.1); Total Protein 7.9 g/dL (6.4-8.2)
[2021-12-19 16:13] LABS: T3 Total 0.93 ng/mL (0.60-1.81)
== END | disposition home or self-care (01) ==
LOC: CHF HDHVI 11:11
PROVIDERS: ATTEND Internal Medicine Cardiovascular Disease
DX: D51.3 Other dietary vitamin B12 deficiency anemia (principal); M47.816 Spondylosis without myelopathy or radiculopathy, lumbar region; M41.86 Other forms of scoliosis, lumbar region; M25.70 Osteophyte, unspecified joint; D64.9 Anemia, unspecified; E11.9 Type 2 diabetes mellitus without complications; E55.9 Vitamin D deficiency, unspecified; I10 Essential (primary) hypertension; R00.2 Palpitations; R53.1 Weakness; R30.0 Dysuria
CPT/HCPCS: 36415; 72131; 80053; 80061; 81003; 82306; 82607; 83036; 83735; 83880; 84439; 84443; 84480; 85025; 93005; 96372; G0463; J1885

== ENCOUNTER 2022-01-14 02:06 | Inpatient (IN) | payer MEDICARE, OTHER ==
[~2022-01-14] VITALS: Ht 157.5 cm; Wt 66.0 kg
[~2022-01-14 02:06] MED LIST changes: -KETOROLAC TROMETH 60MG/2ML VIAL IM ONE; -KETOROLAC TROMETH 60MG/2ML VIAL ONE
[2022-01-14 03:38] LABS: Urine Bacteria FEW /hpf (None Seen); Urine Blood Negative /uL (Negative); Urine Specific Gravity 1.006 (1.001-1.035); Urine WBC 1 /hpf (0 - 5)
[2022-01-14 04:07] LABS: Basophils # (auto) 0 10 ^3/uL (0-0.2); Basophils % (auto) 0.2 % (0.0-2.0); Eosinophils # (auto) 0 10 ^3/uL (0-0.8); Eosinophils % (auto) 0.2 % (0.0-7.0); Hematocrit 30.1 % (36.0-46.0); Hemoglobin 10.5 g/dL (12.2-16.2); Lymphocytes % (auto) 19.8 % (10.0-50.0); Mean Corpuscular Hemoglobin 31.7 pg (28.0-32.0); Mean Corpuscular Hgb Conc. 34.8 g/dL (32.0-36.0); Mean Corpuscular Volume 91.1 fL (80.0-100.0); Monocytes # (auto) 0.6 10 ^3/uL (0-1.3); Neutrophils # (auto) 3.3 10 ^3/uL (1.6-8.6); Neutrophils % (auto) 67.8 % (37.0-80.0); Nucleated Red Blood Cells % 0.2 %; White Blood Cell 4.9 10^3/uL (4.4-10.8)
[2022-01-14 04:19] LABS: Albumin 3.6 g/dL (3.4-5.0); Calcium 8.6 mg/dL (8.5-10.1); Potassium 3.5 mmol/L (3.5-5.1)
[2022-01-14 04:22] LABS: BUN/Creatinine Ratio 14.8; Bilirubin, Total 0.5 mg/dL (0.2-1.0)
[2022-01-14] MEDS ORDERED: SODIUM CHLORIDE 0.9% 1,000 ML IV ONE (05:30)
[2022-01-14] MEDS ORDERED: SODIUM CHL 3% 500 ML IV ONE (08:45)
[2022-01-14] MEDS ORDERED: LABETALOL HCL 5 MG/ML 4ML SYRINGE IV ONE (08:45)
[2022-01-14] MEDS ORDERED: NITROGLYCERIN 0.4 MG SL TAB SL PRN (13:45)
[2022-01-14] MEDS ORDERED: MORPHINE SULFATE INJ 2 MG/ml SYRG IV PRN ×3 (13:45→20:30)
[2022-01-14] MEDS ORDERED: LABETALOL HCL 5 MG/ML 4ML SYRINGE IV PRN (13:45)
[2022-01-14] MEDS: SODIUM CHLORIDE 0.9% 1,000 ML IV SCH (16:30)
[2022-01-14] MEDS: ONDANSETRON HCL 4 MG/2 ML VIAL IV PRN ×2 (16:40→19:09)
[2022-01-14] MEDS ORDERED: NIFEdipine ER 30 MG TAB PO ONE (16:45)
[2022-01-14 16:46] LABS: Albumin 3.4 g/dL (3.4-5.0); Calcium 8.5 mg/dL (8.5-10.1); Potassium 3.4 mmol/L (3.5-5.1)
[2022-01-14 16:48] LABS: BUN/Creatinine Ratio 12.6; Bilirubin, Total 0.4 mg/dL (0.2-1.0); Total Protein 6.8 g/dL (6.4-8.2)
[2022-01-14] MEDS ORDERED: LORazepam 0.5 MG TAB PO PRN (20:30)
[2022-01-14] MEDS ORDERED: ONDANSETRON HCL 4 MG/2 ML VIAL IV PRN (20:30)
[2022-01-14] MEDS ORDERED: ACETAMINOPHEN 325 MG TAB PO PRN (20:30)
[2022-01-14] MEDS ORDERED: DOCUSATE SOD 100 MG CAP PO PRN (20:30)
[2022-01-14] MEDS ORDERED: HYDROcodone-ACET 5/325MG TAB PO PRN (20:30)
[2022-01-14 21:30] LABS: Phosphorus 2.4 mg/dL (2.5-4.90)
[2022-01-14 21:31] LABS: INR 1.05 (0.9-1.15); Partial Thromboplastin Time 25.4 sec (23.6-33.0)
[2022-01-14 21:44] LABS: Albumin 3.4 g/dL (3.4-5.0); BUN/Creatinine Ratio 11.2; Calcium 8.4 mg/dL (8.5-10.1); Potassium 3.6 mmol/L (3.5-5.1)
[2022-01-14 21:46] LABS: Bilirubin, Total 0.2 mg/dL (0.2-1.0); Total Protein 6.4 g/dL (6.4-8.2)
[2022-01-14] MEDS: hydrALAZINE HCL 20 MG/ML VL IV PRN (22:10)
[2022-01-15 05:41] LABS: Basophils # (auto) 0.1 10 ^3/uL (0-0.2); Basophils % (auto) 2.1 % (0.0-2.0); Eosinophils # (auto) 0 10 ^3/uL (0-0.8); Eosinophils % (auto) 0.1 % (0.0-7.0); Hematocrit 30.1 % (36.0-46.0); Hemoglobin 10.5 g/dL (12.2-16.2); Lymphocytes # (auto) 0.7 10 ^3/uL (0.4-5.4); Lymphocytes % (auto) 16.9 % (10.0-50.0); Mean Corpuscular Hemoglobin 32.2 pg (28.0-32.0); Mean Corpuscular Hgb Conc. 34.8 g/dL (32.0-36.0); Mean Corpuscular Volume 92.4 fL (80.0-100.0); Monocytes # (auto) 0.7 10 ^3/uL (0-1.3); Monocytes % (auto) 16.2 % (0.0-12.0); Neutrophils # (auto) 2.7 10 ^3/uL (1.6-8.6); Neutrophils % (auto) 64.7 % (37.0-80.0); Nucleated Red Blood Cells % 0.1 %; Red Blood Cells 3.26 10^6/uL (4.0-5.20); Red Cell Distribution Width 14.1 % (11.8-14.3); White Blood Cell 4.2 10^3/uL (4.4-10.8)
[2022-01-15 05:54] LABS: Potassium 3.6 mmol/L (3.5-5.1)
[2022-01-15 06:10] LABS: Albumin 3.2 g/dL (3.4-5.0); BUN/Creatinine Ratio 12.7; Bilirubin, Total 0.3 mg/dL (0.2-1.0); CRP High Sensitivity 0.02 mg/dL (< 0.3); Calcium 8.5 mg/dL (8.5-10.1); Phosphorus 2.5 mg/dL (2.5-4.90); Total Protein 6.4 g/dL (6.4-8.2); Uric Acid 4.8 mg/dL (2.6-6.0)
[2022-01-15] MEDS: FAMOTIDINE (10MG/ML) 2ML VL IV SCH (10:00)
[2022-01-15 10:13] LABS: Urine Bacteria NONE SEEN /hpf (None Seen); Urine Blood Negative /uL (Negative); Urine WBC 4 /hpf (0 - 5)
[2022-01-15 11:00] LABS: Alcohol, Urine < 3.0 mg/dL (0-10); Amphetamine Screen, Urine NEGATIVE (NEGATIVE); Barbiturate Scree,Urine NEGATIVE (NEGATIVE); Benzodiazephine Screen, Urine NEGATIVE (NEGATIVE); Cannabinoid Screen, Urine NEGATIVE (NEGATIVE); Cocaine Screen, Urine NEGATIVE (NEGATIVE); Opiate Scree,Urine NEGATIVE (NEGATIVE); Phencyclidine Screen, Urine NEGATIVE (NEGATIVE); Protein, Urine 15.4 mg/dL (0.0-11.9)
[2022-01-15] MEDS: SODIUM CHLORIDE 0.9% 1,000 ML IV SCH (11:26)
[2022-01-15] MEDS: ENOXAPARIN SOD 40 MG/0.4 ML SYRINGE SC SCH (11:27)
[2022-01-15] MEDS ORDERED: NIFEdipine ER 30 MG TAB PO ONE (12:45)
[2022-01-15] MEDS: LEVOTHYROXINE SODIUM 25 MCG TAB PO ONE ×2 (12:45→13:33)
[2022-01-15 13:40] LABS: INR 1.03 (0.9-1.15); Partial Thromboplastin Time 27.6 sec (23.6-33.0)
[2022-01-15] MEDS: IPRATROPIUM BROM 0.5 MG/2.5ML INH SOL NEB SCH ×3 (18:40→23:49)
[2022-01-15 22:00] VITALS: BP 138/51
[2022-01-15] MEDS: MAGNESIUM OXIDE 400 MG TAB PO SCH (22:00)
[2022-01-16 00:34] VITALS: BP 135/51
[2022-01-16] MEDS: SODIUM CHLORIDE 0.9% 1,000 ML IV SCH ×2 (01:50→18:02)
[2022-01-16 04:00] VITALS: BP 146/65
[2022-01-16] MEDS: IPRATROPIUM BROM 0.5 MG/2.5ML INH SOL NEB SCH ×6 (06:38→22:09)
[2022-01-16] MEDS: LEVOTHYROXINE SODIUM 25 MCG TAB PO SCH ×2 (07:08→07:21)
[2022-01-16 09:00] VITALS: BP 159/64
[2022-01-16] MEDS ORDERED: NIFEdipine ER 30 MG TAB PO SCH (10:00)
[2022-01-16] MEDS: FAMOTIDINE (10MG/ML) 2ML VL IV SCH (10:32)
[2022-01-16] MEDS: MAGNESIUM OXIDE 400 MG TAB PO SCH ×2 (10:36→22:17)
[2022-01-16] MEDS: ASPirin-EC 81 mg tab PO SCH (10:36)
[2022-01-16] MEDS: METOPROLOL SUCCINATE XL 50 MG TAB PO SCH (10:37)
[2022-01-16] MEDS: MONTELUKAST SODIUM 10 MG TAB PO SCH (10:37)
[2022-01-16] MEDS: ENOXAPARIN SOD 40 MG/0.4 ML SYRINGE SC SCH (10:37)
[2022-01-16 13:00] VITALS: BP 158/76
[2022-01-16] MEDS: hydrALAZINE HCL 20 MG/ML VL IV PRN (15:56)
[2022-01-16 17:00] VITALS: BP 140/55
[2022-01-16 22:00] VITALS: BP 130/59
[2022-01-16] MEDS: NIFEdipine ER 30 MG TAB PO SCH (22:17)
[2022-01-17 05:00] VITALS: BP 142/62
[2022-01-17] MEDS: IPRATROPIUM BROM 0.5 MG/2.5ML INH SOL NEB SCH ×3 (05:51→14:29)
[2022-01-17] MEDS: LEVOTHYROXINE SODIUM 25 MCG TAB PO SCH (06:12)
[2022-01-17] MEDS: SODIUM CHLORIDE 0.9% 1,000 ML IV SCH (06:40)
[2022-01-17 08:00] VITALS: BP 136/61
[2022-01-17] MEDS: ASPirin-EC 81 mg tab PO SCH (09:30)
[2022-01-17] MEDS: METOPROLOL SUCCINATE XL 50 MG TAB PO SCH (09:30)
[2022-01-17] MEDS: MONTELUKAST SODIUM 10 MG TAB PO SCH (09:30)
[2022-01-17] MEDS: NIFEdipine ER 30 MG TAB PO SCH (09:31)
[2022-01-17] MEDS: MAGNESIUM OXIDE 400 MG TAB PO SCH (09:31)
[2022-01-17] MEDS: ENOXAPARIN SOD 40 MG/0.4 ML SYRINGE SC SCH (09:32)
[2022-01-17 12:00] VITALS: BP 131/61
[2022-01-17 16:00] VITALS: BP 117/59
[2022-01-17] MEDS ORDERED: NIF10C PO (16:06)
[2022-01-17] MEDS ORDERED: NIFE1TAB36 PO (16:32)
[2022-01-17] MEDS ORDERED: NIFE20CA PO (16:33)
== END 2022-01-17 17:41 | disposition home or self-care (01) | DRG 305 ==
LOC: EDBD 02:06 → ER 02:06 → TELE 13:36 → TELE-EAST 01-15 16:52
PROVIDERS: ADMIT Hospitalist; ATTEND Internal Medicine Cardiovascular Disease
DX: I16.0 Hypertensive urgency (principal); E87.1 Hypo-osmolality and hyponatremia; N18.31 Chronic kidney disease, stage 3a; E03.9 Hypothyroidism, unspecified; D64.9 Anemia, unspecified; J44.9 Chronic obstructive pulmonary disease, unspecified; I12.9 Hypertensive chronic kidney disease with stage 1 through stage 4 chronic kidney disease, or unspecified chronic kidney disease; R09.89 Other specified symptoms and signs involving the circulatory and respiratory systems; F41.9 Anxiety disorder, unspecified; Z66 Do not resuscitate; Z20.822 Contact with and (suspected) exposure to COVID-19; R07.9 Chest pain, unspecified; E78.5 Hyperlipidemia, unspecified; F17.200 Nicotine dependence, unspecified, uncomplicated; Z71.6 Tobacco abuse counseling; Z79.899 Other long term (current) drug therapy; Z79.890 Hormone replacement therapy; Z90.710 Acquired absence of both cervix and uterus; Z88.8 Allergy status to other drugs, medicaments and biological substances; Z51.5 Encounter for palliative care; Z79.51 Long term (current) use of inhaled steroids
CPT/HCPCS: 36415; 70450; 71045; 80053; 80061; 80307; 81001; 82270; 82550; 82728; 83615; 83690; 83735; 83880; 84100; 84156; 84439; 84443; 84484; 84550; 85025; 85379; 85610; 85652; 85730; 86141; 87040; 87086; 93005; 93306; 94640; 96361; 96374; G0378; J2405; J3490

== ENCOUNTER → 2022-01-29 | Outpatient (CLI) | payer MEDICARE, OTHER ==
[~2022-01-29] VITALS: Ht 157.5 cm; Wt 63.0 kg
[~2022-01-29] MED LIST changes: +ADENOSINE 53 MG in GIVE UN-DILUTED 0 ML IV ONE; +ADENOSINE 90 MG/30 ML INJ IV ONE; +NIF10C PO; +NIFE1TAB36 PO; +NIFE20CA PO
== END | disposition home or self-care (01) ==
LOC: Rad HDHVI 09:08
PROVIDERS: ATTEND Internal Medicine Cardiovascular Disease
DX: I11.0 Hypertensive heart disease with heart failure (principal); I50.33 Acute on chronic diastolic (congestive) heart failure; E78.00 Pure hypercholesterolemia, unspecified
CPT/HCPCS: 78452; 93005; 96374; 96375; A9500; J0153

== ENCOUNTER → 2022-02-19 | Outpatient (CLI) | payer MEDICARE, OTHER ==
[~2022-02-19] MED LIST changes: -ADENOSINE 53 MG in GIVE UN-DILUTED 0 ML IV ONE; -ADENOSINE 90 MG/30 ML INJ IV ONE
== END | disposition home or self-care (01) ==
LOC: Rad HDHVI 11:07
PROVIDERS: ATTEND Internal Medicine Cardiovascular Disease
DX: I51.7 Cardiomegaly (principal); I50.33 Acute on chronic diastolic (congestive) heart failure; R06.02 Shortness of breath
CPT/HCPCS: 93306

== ENCOUNTER 2022-03-30 14:43 | Emergency (ER) | payer MEDICARE, OTHER ==
[~2022-03-30] VITALS: Ht 157.5 cm; Wt 63.6 kg
[2022-03-30] MEDS ORDERED: ACETAMINOPHEN 325 MG TAB PO ONE (19:00)
[2022-03-30 19:49] LABS: Basophils # (auto) 0 10 ^3/uL (0-0.2); Basophils % (auto) 1.1 % (0.0-2.0); Eosinophils # (auto) 0.1 10 ^3/uL (0-0.8); Eosinophils % (auto) 1.3 % (0.0-7.0); Hematocrit 34.2 % (36.0-46.0); Hemoglobin 11.2 g/dL (12.2-16.2); Lymphocytes # (auto) 1.4 10 ^3/uL (0.4-5.4); Lymphocytes % (auto) 36.4 % (10.0-50.0); Mean Corpuscular Hemoglobin 31.7 pg (28.0-32.0); Mean Corpuscular Hgb Conc. 32.7 g/dL (32.0-36.0); Mean Corpuscular Volume 96.9 fL (80.0-100.0); Monocytes # (auto) 0.3 10 ^3/uL (0-1.3); Monocytes % (auto) 8.6 % (0.0-12.0); Neutrophils # (auto) 2.1 10 ^3/uL (1.6-8.6); Neutrophils % (auto) 52.6 % (37.0-80.0); Red Blood Cells 3.53 10^6/uL (4.0-5.20); Red Cell Distribution Width 13.6 % (11.8-14.3); White Blood Cell 3.9 10^3/uL (4.4-10.8)
[2022-03-30 20:00] LABS: Calcium 8.8 mg/dL (8.5-10.1); Potassium 4.4 mmol/L (3.5-5.1)
[2022-03-30 20:04] LABS: BUN/Creatinine Ratio 9.1; Bilirubin, Total 0.4 mg/dL (0.2-1.0); Total Protein 7.1 g/dL (6.4-8.2)
[2022-03-30] MEDS ORDERED: LABETALOL HCL 5 MG/ML 4ML SYRINGE IV ONE (22:15)
[2022-03-30] MEDS ORDERED: cloNIDine HCL 0.1 MG TAB PO ONE (23:00)
[2022-03-30 23:20] VITALS: BP 216/90
== END 2022-03-31 00:15 | disposition home or self-care (01) ==
LOC: EDBD 14:43 → ER 14:45
DX: I10 Essential (primary) hypertension (principal); J44.9 Chronic obstructive pulmonary disease, unspecified; E78.5 Hyperlipidemia, unspecified; Z90.710 Acquired absence of both cervix and uterus
CPT/HCPCS: 36415; 80053; 83880; 84484; 85025; 93005; 99284; J3490

== ENCOUNTER → 2022-04-04 | Outpatient (CLI) | payer MEDICARE, OTHER ==
[2022-04-04 16:49] LABS: Albumin 3.8 g/dL (3.4-5.0); Calcium 9.1 mg/dL (8.5-10.1); Potassium 4.2 mmol/L (3.5-5.1)
[2022-04-04 16:53] LABS: Bilirubin, Total 0.3 mg/dL (0.2-1.0); Total Protein 7.2 g/dL (6.4-8.2)
[2022-04-04 19:25] LABS: BUN/Creatinine Ratio 8.3
== END | disposition home or self-care (01) ==
LOC: LAB 11:21
PROVIDERS: ATTEND Internal Medicine
DX: E78.5 Hyperlipidemia, unspecified (principal)
CPT/HCPCS: 36415; 80053; 80061

== ENCOUNTER → 2022-07-25 | Outpatient (CLI) | payer MEDICARE, OTHER | END | disposition home or self-care (01) | LOC: Rad HDHVI 12:56 | PROVIDERS: ATTEND Internal Medicine Cardiovascular Disease | DX: I70.0 Atherosclerosis of aorta (principal); M47.814 Spondylosis without myelopathy or radiculopathy, thoracic region; R06.02 Shortness of breath | CPT/HCPCS: 71046 ==

== ENCOUNTER 2024-03-02 11:16 | Emergency (ER) | payer MEDICARE, OTHER ==
[~2024-03-02] VITALS: Ht 157.5 cm; Wt 59.0 kg
[~2024-03-02 11:16] MED LIST changes: -AMLO-489 PO; +AMLO1TAB22 PO; -FERR-20 PO; +FERR325T24 PO; +LEVO25TA2 PO; -LEVO25TA49 PO; +MECL-90 PO; -MECL25TA18 PO; -METH250T21 PO; +METH250T28 PO; +METH250T29 PO; -METH250T8 PO
[2024-03-02 14:05] VITALS: BP 157/62; PULSE 72; RESP 17; TEMP 98.2; O2SAT 98
== END 2024-03-02 14:23 | disposition home or self-care (01) ==
LOC: ER 11:16
DX: R51.9 Headache, unspecified (principal); I10 Essential (primary) hypertension; E78.5 Hyperlipidemia, unspecified; J44.9 Chronic obstructive pulmonary disease, unspecified; Z86.2 Personal history of diseases of the blood and blood-forming organs and certain disorders involving the immune mechanism; Z90.710 Acquired absence of both cervix and uterus; W18.39XA Other fall on same level, initial encounter; Y93.01 Activity, walking, marching and hiking; Y92.89 Other specified places as the place of occurrence of the external cause; Y99.8 Other external cause status
CPT/HCPCS: 70450

== ENCOUNTER → 2024-03-18 | Outpatient (CLI) | payer MEDICARE, OTHER ==
[~2024-03-18] MED LIST changes: -NIF10C PO; +NIFE10CA52 PO; -NIFE20CA PO; +NIFE20CA13 PO
== END | disposition home or self-care (01) ==
LOC: Rad HDHVI 15:28
PROVIDERS: ATTEND Internal Medicine Cardiovascular Disease
DX: I10 Essential (primary) hypertension (principal)
CPT/HCPCS: 93880

== ENCOUNTER → 2024-03-30 | Outpatient (CLI) | payer MEDICARE, OTHER | END | disposition home or self-care (01) | LOC: Rad HDHVI 09:56 | PROVIDERS: ATTEND Internal Medicine Cardiovascular Disease | DX: R06.02 Shortness of breath (principal); R07.89 Other chest pain | CPT/HCPCS: 93306 ==

== ENCOUNTER → 2024-04-27 | Outpatient (CLI) | payer MEDICARE, OTHER | END | disposition home or self-care (01) | LOC: Rad HDHVI 16:09 | PROVIDERS: ATTEND Internal Medicine Cardiovascular Disease | DX: G31.89 Other specified degenerative diseases of nervous system (principal); G45.9 Transient cerebral ischemic attack, unspecified; G23.8 Other specified degenerative diseases of basal ganglia | CPT/HCPCS: 70450 ==

== ENCOUNTER → 2024-11-03 | Outpatient (CLI) | payer MEDICARE, OTHER ==
[~2024-11-03] MED LIST changes: +ALBU108A5 IN; +CLON-818 PO; +GABA-1308 PO; +HYDR-4798 PO; +HYDR25TA88 PO; +INDA2.5T PO; +LEVO88TA2 PO; +LIDO5DIS21 TOP; +POTA-220 PO; +RIME75TA PO
[2024-11-03 10:20] VITALS: BP 142/67; PULSE 89; RESP 18; O2SAT 97
[2024-11-03 10:34] VITALS: BP 133/61; PULSE 73; RESP 18; O2SAT 97
--- NOTE | 2024-11-03 13:08 | DVH ---
EXAM: XY CHEST TWO VIEWS ROUTINE HISTORY: PRE OP COMPARISON: CHEST TWO VIEWS ROUTINE on DOS: 07/25/22, CXR2 on DOS: 07/25/22 TECHNIQUE: Frontal and lateral views of the chest were performed. FINDINGS: No pneumothorax, pulmonary edema, pleural effusions, or consolidative infiltrates. There is mild rela tive elevation of the right hemidiaphragm. The heart is not enlarged. The aortic arch is calcific. No fractures are identified about the bony thorax. There are postoperative changes of cervical posterio r fusion. The humeral heads are high-riding consistent with significant rotator cuff tendinopathy. Th ere is moderate thoracic degenerative disc disease. There may be a chronic mild midthoracic compressi on fracture. IMPRESSION: 1. No acute intrathoracic process. 2. Atherosclerotic vascular disease.
== END | disposition home or self-care (01) ==
LOC: Rad HDHVI 10:07
PROVIDERS: ATTEND Internal Medicine Cardiovascular Disease
DX: Z01.818 Encounter for other preprocedural examination (principal); I70.0 Atherosclerosis of aorta; M47.814 Spondylosis without myelopathy or radiculopathy, thoracic region; R00.1 Bradycardia, unspecified; Z98.890 Other specified postprocedural states
CPT/HCPCS: 71046; 93005; G0463

== ENCOUNTER 2024-11-05 08:44 | Day surgery (SDC) | payer MEDICARE, OTHER ==
[2024-11-03 13:09] LABS: Basophils # (auto) 0.1 10 ^3/uL (0-0.2); Basophils % (auto) 1.5 % (0.0-2.0); Eosinophils # (auto) 0.1 10 ^3/uL (0-0.8); Eosinophils % (auto) 1.2 % (0.0-7.0); Hematocrit 36.6 % (36.0-46.0); Hemoglobin 12.4 g/dL (12.2-16.2); Lymphocytes # (auto) 1.8 10 ^3/uL (0.4-5.4); Mean Corpuscular Hemoglobin 30.1 pg (28.0-32.0); Mean Corpuscular Hgb Conc. 33.9 g/dL (32.0-36.0); Mean Corpuscular Volume 88.8 fL (80.0-100.0); Monocytes # (auto) 0.4 10 ^3/uL (0-1.3); Monocytes % (auto) 8.9 % (0.0-12.0); Neutrophils # (auto) 2.6 10 ^3/uL (1.6-8.6); Neutrophils % (auto) 52.4 % (37.0-80.0); Platelet Count (auto) 377 10^3/uL (140-450); Red Blood Cells 4.13 10^6/uL (4.0-5.20); Red Cell Distribution Width 15.4 % (11.8-14.3)
[2024-11-03 13:36] LABS: Anion Gap 5 (5-15); Calcium 9.8 mg/dL (8.7-10.4); Carbon Dioxide 31 mmol/L (20-31)
[2024-11-03 13:37] LABS: Chloride 98 mmol/L (98-107); Potassium 3.3 mmol/L (3.5-5.1); Sodium 134 mmol/L (136-145)
[2024-11-03 13:41] LABS: BUN/Creatinine Ratio 12.9 (10.0-20.0); Blood Urea Nitrogen 16 mg/dL (9-23); Glucose 96 mg/dL (74-106)
[2024-11-03 14:36] LABS: INR 0.94 (0.9-1.15); Partial Thromboplastin Time 25.1 SEC (24.5-34.5)
[2024-11-05] VITALS (7 sets, daily range): BP systolic 66–148; BP diastolic 30–58; PULSE 65–82; RESP 12–20; TEMP 98.8; O2SAT 95–100
[~2024-11-05] VITALS: Ht 157.5 cm; Wt 57.6 kg
[~2024-11-05 08:44] MED LIST changes: -ALPR0.25 PO; -ALPR0.255; -ASPI-394; -CYCL-839 PO; -EZET10TA22; -FLUT250M2 IN; -IPRA0.00 IN; -LEVO25TA2 PO; -LEVO50TA7; -LEVO50TA7 PO; -MAGNTAB16 OR; -MECL-90 PO; -METH250T28 PO; -METH250T29 PO; -NIFE10CA52 PO; -NIFE1TAB36 PO; -NIFE20CA13 PO; -TELM40TA11 PO; -TELM80TA PO
[2024-11-05] MEDS ORDERED: VANCOMYCIN HCL 1000 MG VL ONE (12:24)
[2024-11-05] MEDS ORDERED: LIDOCAINE 2%HCL (LOCAL ANESTH.) INJ 20ML MDV ONE (12:25)
[2024-11-05] MEDS ORDERED: VANCOMYCIN 1GM/200ML PM 250 ML IV ONE (12:25)
[2024-11-05] MEDS ORDERED: MIDAZOLAM HCL 2MG/2ML 2ml VIAL (1mg/ml) ONE (12:25)
[2024-11-05] MEDS ORDERED: fentaNYL CITRATE 100 MCG/2 ML VL ONE (12:25)
[2024-11-05] MEDS ORDERED: hydrALAZINE HCL 20 MG/ML VL ONE (13:08)
--- NOTE | 2024-11-05 13:45 | DVHDS ---
DATE OF DISCHARGE: 11/05/2024 DISCHARGE DIAGNOSES: Sick sinus syndrome, marked bradycardia, near syncope, accelerated hypertension secondary to bradycardia. HOSPITAL COURSE: The patient underwent successful dual chamber permanent pacemaker. No complication. Chest x-ray was negative. Follow up with me in approximately 1 week. Will make further recommendations after. In the meantime, the patient is to resume all current medications, but all anticoagulants will be held for 1 week. Stable at the time of discharge. DISPOSITION: Home. ACTIVITY: As instructed. DIET: Will be 2 gram sodium diet. Jericho Garza MD SA/NEENA TID: [id number] RECEIPT: [id number]
--- NOTE | 2024-11-05 13:51 | DVHOP ---
DATE OF SURGERY: 11/05/2024 PROCEDURE TO BE PERFORMED: * Dual chamber permanent pacemaker. * Venography. * Conscious sedation. DESCRIPTION OF PROCEDURE: The patient was prepped and draped in a sterile condition. 1% Xylocaine used to anesthetize the left subclavicular region. Using a Cook needle, the left subclavian vein was engaged with Seldinger technique and guidewire was then appropriately positioned. Using a 10 blade, a linear incision was made using blunt dissection, electrocautery, pocket was then dissected out. Using a 9-Tunisian sheath, the right ventricular active fixation lead was then appropriately positioned. Threshold parameters obtained. Lead was secured to the chest wall with 0 Ethibond. Similarly using a 7-Tunisian peel-away sheath, the right atrial active fixation lead was then appropriately positioned. Threshold parameters obtained. Lead was secured to the chest wall with 0 Ethibond. Generator was implanted. Pocket was irrigated using vancomycin saline solution. Pocket was closed using 3-0 Monoderm subcutaneous sutures by 3-0 Monoderm subcuticular sutures. There were no complications. The patient tolerated the procedure well. RESULTS: The patient has Biotronik MRI compatible dual-chamber permanent pacemaker, Edora 8 DR-T, model #264636, serial #[id number]. Right atrial lead is Solia S45, model #473020, serial #[id number]. Right ventricular lead is Solia S43, model #638482, serial #[id number]. Threshold parameters atrium, P-wave amplitude of 4.8 millivolts, threshold of 0.6 volts at 0.4 milliseconds pulse duration, and pacing impedance of 625 ohms. Right ventricular lead, R-wave amplitude of 9.4 millivolts, threshold of 0.7 volts at 0.4 milliseconds pulse duration, pacing impedance of 800 ohms. CONCLUSION: The patient had successful implantation of dual chamber permanent pacemaker, MRI compatible, Biotronik device. Jericho Garza MD SA/TERRY TID: [id number] RECEIPT: [id number]
--- NOTE | 2024-11-05 13:55 | DVHHP ---
ADMIT DATE: 11/05/2024 HISTORY OF PRESENT ILLNESS: The patient who is 84 years old with history of sick sinus syndrome, marked bradycardia, near syncope. The patient is complaining of significant lethargy and fatigue. She has pauses of greater than 3 seconds. Because of that, it is felt that the patient should undergo permanent pacemaker implantation. Risks and benefits were explained to the patient. The patient initially was reluctant to undergo the permanent pacemaker because of the age and she finally consented to it after discussing with the family members. PERTINENT MEDICAL HISTORY: Significant for diastolic dysfunction, severe hypertension, hyperlipidemia as well. She denies any fever, chills, melena, hematochezia, hematemesis, hemoptysis, or hematuria. Denies any epistaxis. Denies any history of trauma to the head. No history of CVA. No history of seizure disorder. No history of movement disorder. Pertinent medical history is also significant for osteoarthritis and some palpitations which is secondary to her bradycardia. She has had very labile blood pressure and that has to be monitored closely and that may be linked to the fact that the patient has marked bradycardia intermittent with pauses. FAMILY HISTORY: Negative. SOCIAL HISTORY: Negative. PHYSICAL EXAMINATION: VITAL SIGNS: Blood pressure is 180/88, pulse of 45 and regular, O2 saturation 96% on room air. HEENT: Pupils are reactive. Funduscopic exam shows no AV nicking, no exudates, no papilledema. Sclerae are anicteric. Extraocular muscles are intact. No JVD appreciated. Carotid pulses are 2+ symmetrical. No cervical adenopathy. No supraclavicular adenopathy. Oral mucosa moist. Posterior pharynx without any exudate. PULMONARY: Clear to auscultation. CARDIOVASCULAR: Regular rate without S3, without S4. PMI is not displaced. ABDOMEN: Soft. Nontender. Normal bowel sounds. EXTREMITIES: 1+ pulses bilaterally. NEUROLOGIC: The patient is intact. ASSESSMENT AND PLAN: Thus, the patient with accelerated hypertension, labile blood pressure, labile heart rate with pauses, now with near syncopal episode. The patient is now to undergo dual-chamber permanent pacemaker implantation. Jericho Garza MD SA/MARCIA/VAIBHAV TID: [id number] RECEIPT: [id number]
--- NOTE | 2024-11-05 14:18 | DVH ---
CHEST RADIOGRAPH Indication: S/P PACEMAKER Technique: Single frontal view of the chest was obtained Comparison: CHEST PORTABLE on DOS: 01/14/22, CXRP on DOS: 01/14/22 FINDINGS: Lines and Tubes: Dual-chamber pacemaker in place Lungs: No focal consolidation. Pleura: No effusion. No pneumothorax. Cardiomediastinal contours: Unremarkable Bones: No acute osseous abnormality. IMPRESSION: 1. Dual-chamber pacemaker in place
[2024-11-05] MEDS: ACETAMINOPHEN 325 MG TAB PO ONE (14:49)
--- NOTE | 2024-11-06 15:47 | ECG ---
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
== END 2024-11-05 16:28 | disposition home or self-care (01) ==
LOC: CATH 08:44
PROVIDERS: ATTEND Internal Medicine Cardiovascular Disease
DX: I44.30 Unspecified atrioventricular block (principal); I49.5 Sick sinus syndrome; I11.0 Hypertensive heart disease with heart failure; I50.30 Unspecified diastolic (congestive) heart failure; E78.5 Hyperlipidemia, unspecified; R00.1 Bradycardia, unspecified; R55 Syncope and collapse; M19.90 Unspecified osteoarthritis, unspecified site; Z79.899 Other long term (current) drug therapy
CPT/HCPCS: 33208; 36415; 71045; 80048; 85025; 85610; 85730; 93005; C1769; C1785; J0360; J2250; J3010; J3370; 99152; 99153

== ENCOUNTER → 2024-11-06 | Outpatient (CLI) | payer MEDICARE, OTHER ==
[~2024-11-06] MED LIST changes: +ALPR0.25 PO; +ALPR0.255; +ASPI-394; +CYCL-839 PO; +EZET10TA22; +FLUT250M2 IN; +IPRA0.00 IN; +LEVO25TA2 PO; +LEVO50TA7; +LEVO50TA7 PO; +MAGNTAB16 OR; +MECL-90 PO; +METH250T28 PO; +METH250T29 PO; +NIFE10CA52 PO; +NIFE1TAB36 PO; +NIFE20CA13 PO; +TELM40TA11 PO; +TELM80TA PO
--- NOTE | 2024-11-06 12:43 | DVH ---
EXAM: XY CHEST TWO VIEWS ROUTINE HISTORY: POST OP SOB COMPARISON: XY CHEST TWO VIEWS ROUTINE on DOS: 11/03/24, CHEST TWO VIEWS ROUTINE on DOS: 07/25/22, CXR2 on DOS: 07/25/22 TECHNIQUE: Frontal and lateral views of the chest were performed. FINDINGS: Left chest pacemaker is re-identified. There is a moderate sized left pneumothorax, measuring 4 cm in the left lung apex. No pulmonary edema, pleural effusions, or consolidative infiltrates. There is mi ld elevation of the right hemidiaphragm, stable. The heart is not enlarged. The aortic arch is calcif ic. There is thoracic degenerative disc disease. No fractures are identified about the bony thorax. T he humeral heads are high-riding, [id number], consistent with significant rotator cuff t endinopathy bilaterally. IMPRESSION: 1. Moderate sized left pneumothorax measures 4 cm cephalocaudal in the left lung apex. 2. Left chest pacemaker and atherosclerotic vascular disease. Findings were discussed by telephone with Dr. Jericho Rothman on 11/06/2024 at 14:39 CDT
== END | disposition home or self-care (01) ==
LOC: Rad HDHVI 11:35
PROVIDERS: ATTEND Internal Medicine Cardiovascular Disease
DX: I70.90 Unspecified atherosclerosis (principal); R94.31 Abnormal electrocardiogram [ECG] [EKG]; M51.34 Other intervertebral disc degeneration, thoracic region; Z95.0 Presence of cardiac pacemaker
CPT/HCPCS: 71046; 93005; G0463

== ENCOUNTER → 2024-11-10 | Outpatient (CLI) | payer MEDICARE, OTHER ==
[~2024-11-10] MED LIST changes: -ALPR0.25 PO; -ALPR0.255; -ASPI-394; -CYCL-839 PO; -EZET10TA22; -FLUT250M2 IN; -IPRA0.00 IN; -LEVO25TA2 PO; -LEVO50TA7; -LEVO50TA7 PO; -MAGNTAB16 OR; -MECL-90 PO; -METH250T28 PO; -METH250T29 PO; -NIFE10CA52 PO; -NIFE1TAB36 PO; -NIFE20CA13 PO; -TELM40TA11 PO; -TELM80TA PO
--- NOTE | 2024-11-10 17:43 | DVH ---
XY CHEST TWO VIEWS ROUTINE CLINICAL HISTORY: SOB COMPARISON: XY CHEST TWO VIEWS ROUTINE on DOS: 11/06/24, XY CHEST TWO VIEWS ROUTINE on DOS: 11/03/24, TABBY ST TWO VIEWS ROUTINE on DOS: 07/25/22 TECHNIQUE: Frontal and lateral view of the chest was obtained FINDINGS: There is a bipolar pacemaker with leads in standard positions. Heart size is normal. Lungs are hyperl ucent with possible large bleb in the left apex follow-up CT examination is suggested.. Patient is ve ry kyphotic no compression fractures are appreciated. IMPRESSION: Possible large bleb left apex follow-up CT examination is suggested
== END | disposition home or self-care (01) ==
LOC: Rad HDHVI 15:32
PROVIDERS: ATTEND Internal Medicine Cardiovascular Disease
DX: R06.02 Shortness of breath (principal)
CPT/HCPCS: 71046

== ENCOUNTER → 2024-11-11 | Outpatient (CLI) | payer MEDICARE, OTHER ==
[~2024-11-11] MED LIST changes: +IOHEXOL 350 MG/ML 100ML IJ ONE
[2024-11-11 12:17] VITALS: BP 160/76; PULSE 93; RESP 20; O2SAT 92
[2024-11-11 13:23] VITALS: BP 155/69; PULSE 88; RESP 20; O2SAT 95
--- NOTE | 2024-11-11 15:07 | DVH ---
Exam: CT CT CHEST/AB/PL W CON- IV ONLY History: WEIGHT LOSS/ SOB Comparison Study: Chest x-ray 11/10/2024 Technique: Multidetector CT of the chest, abdomen and pelvis was performed from lower neck to pubic s ymphysis. Intravenous contrast was administered during this examination. Axial, coronal and sagittal multiplanar reformats were performed by the technologist on a separate workstation. Radiation Dose Information: CT Dose: CTDI volume is 7.48 mGy. Dose-length product is 544.83 mGy*cm Omnipaque: 100 mL Findings: Lower neck: Unremarkable. Lungs: 70-80% Lt pneumothorax Heart/Vascular Structures: Unremarkable Lymph Nodes: No adenopathy Pleura: Large left pneumothorax Liver: The liver is normal in size. No focal lesions. Normal hepatic vascular enhancement. Gallbladder and Biliary Tree: Unremarkable Spleen: Unremarkable Pancreas: The pancreas is normal in appearance without focal lesions or abnormal enhancement. Adrenal Glands: Unremarkable Kidneys: Kidneys demonstrate normal symmetric enhancement without focal lesions, calculi or hydroneph rosis. Small cortical cysts left kidney Bladder: Unremarkable Bowel: The stomach is grossly normal in appearance. Small bowel and colon are normal in caliber and d istribution. The appendix is not visualized; however, no secondary findings of acute appendicitis id entified. Ascites: Absent Lymphadenopathy: No mesenteric, retroperitoneal or periportal lymphadenopathy. Abdominal Wall and Mesentery: Unremarkable. Vasculature: The visualized abdominal aorta is normal in size and caliber. Abdominal and pelvic vess els demonstrate normal enhancement. Pelvic Organs: Unremarkable Musculoskeletal: No aggressive focal bony lesions, acute fractures or dislocation. IMPRESSION: 1. 70-80% left pneumothorax' 2. Small cortical cysts left kidney. 3. Large left pneumothorax Critical Result: Large 70-80% left pneumothorax. Findings discussed with BRENDA Joe at 11/11/2024 03:01 PM, and acknowledged receipt and under standing of the findings. HS:Y .. 1. All CT scans at this medical facility are performed using dose modulation techniques as appropriate to a performed exam including the following: Automated exposure control was utilized; adjustment of t he MA and/or KV according to patient size; and use of iterative reconstruction technique.
== END | disposition home or self-care (01) ==
LOC: Rad HDHVI 12:16
PROVIDERS: ATTEND Internal Medicine Cardiovascular Disease
DX: N28.1 Cyst of kidney, acquired (principal); J93.9 Pneumothorax, unspecified; R64 Cachexia; R06.02 Shortness of breath
CPT/HCPCS: 71260; 74177; G0463; Q9967

== ENCOUNTER 2024-11-12 08:13 | Inpatient (IN) | payer MEDICARE, OTHER ==
[2024-11-12] VITALS (18 sets, daily range): BP systolic 115–190; BP diastolic 60–88; PULSE 77–92; RESP 15–21; TEMP 97.8–98.3; O2SAT 93–100
[~2024-11-12] VITALS: Ht 157.5 cm; Wt 61.8 kg
[~2024-11-12 08:13] MED LIST changes: -IOHEXOL 350 MG/ML 100ML IJ ONE
[2024-11-12] MEDS ORDERED: MORPHINE SULFATE INJ 2 MG/ml SYRG IV PRN (09:00)
[2024-11-12] MEDS ORDERED: cloNIDine HCL 0.1 MG TAB PO PRN (09:00)
[2024-11-12] MEDS ORDERED: NITROGLYCERIN 0.4 MG SL TAB SL PRN (09:00)
[2024-11-12] MEDS: ALBUTEROL SULF 2.5 MG/0.5ML(0.5%) NEB SOLN ONE (09:36)
[2024-11-12] MEDS ORDERED: LEVOTHYROXINE SODIUM 88 MCG TAB PO ONE ×3 (10:00→14:30)
[2024-11-12] MEDS: hydrALAZINE HCL 25 MG TAB PO SCH (10:00)
[2024-11-12] MEDS: amLODIPine BESYLATE 5 MG TAB PO SCH (10:00)
[2024-11-12] MEDS: METOPROLOL SUCCINATE XL 50 MG TAB PO SCH (10:00)
[2024-11-12] MEDS ORDERED: LIDOCAINE 5% TOPICAL PATCH TOP SCH (10:00)
[2024-11-12] MEDS ORDERED: LEVOTHYROXINE SODIUM 88 MCG TAB PO SCH (10:00)
[2024-11-12] MEDS: POTASSIUM CHL 20 Meq TABLET PO SCH (10:00)
[2024-11-12] MEDS ORDERED: GABAPENTIN 100 MG CAP PO SCH (10:00)
[2024-11-12] MEDS: HYDROcodone-ACET 10/325MG TAB PO PRN (11:19)
[2024-11-12] MEDS ORDERED: ALBUTEROL SULF HFA 90MCG INH 200DOSE IN SCH (12:00)
[2024-11-12] MEDS: KETOROLAC TROMETH 30 MG/ML 1ML VIAL IV ONE (13:15)
[2024-11-12] MEDS: KETOROLAC TROMETH 30 MG/ML 1ML VIAL ONE (13:30)
--- NOTE | 2024-11-12 13:46 | DVH ---
CT CHEST WITHOUT CONTRAST, HISTORY: CHEST TUBE PLACEMENT for large pneumothorax COMPARISON: None PROCEDURE: Informed consent was obtained. The patient was placed supine on the CT scanner. The fluid collection was localized under CT scan and the overlying skin prepped with chlorhexidine which was a llowed to dry and draped in the usual sterile fashion and infiltrated with Xylocaine. Time out was pe rformed. With CT guidance, a 19-gauge centesis needle catheter was advanced via trans-pleural approac h into the left pneumothorax. Following aspiration of a small amount of air, a 0.035 wire was advance d into the pneumothorax. Placement was confirmed with CT scan. After serial dilatation, a 8 Citizen [place] mu ltipurpose pigtail drain was placed into the pneumothorax. Air was aspirated. The drain was sutured a t the skin surface and connected to a Pleur Evac. No immediate complication was noted. Post procedure CT imaging through the drain site was obtained. DLP =1273 mGy-cm. FINDINGS: Limited CT scan of through the chest demonstrates a large sized left pneumothorax. Post pr ocedure scan shows pigtail drain within the left pneumothorax, which is decreased in size. No immedia te complication was identified. IMPRESSION: CT guided placement of 8 [place] pigtail drain into a left pneumothorax. PLAN: Routine tube care. Low wall suction. Daily chest x ray.
--- NOTE | 2024-11-12 13:46 | DVH ---
CT CHEST WITHOUT CONTRAST, HISTORY: CHEST TUBE PLACEMENT for large pneumothorax COMPARISON: None PROCEDURE: Informed consent was obtained. The patient was placed supine on the CT scanner. The fluid collection was localized under CT scan and the overlying skin prepped with chlorhexidine which was a llowed to dry and draped in the usual sterile fashion and infiltrated with Xylocaine. Time out was pe rformed. With CT guidance, a 19-gauge centesis needle catheter was advanced via trans-pleural approac h into the left pneumothorax. Following aspiration of a small amount of air, a 0.035 wire was advance d into the pneumothorax. Placement was confirmed with CT scan. After serial dilatation, a 8 [place] mu ltipurpose pigtail drain was placed into the pneumothorax. Air was aspirated. The drain was sutured a t the skin surface and connected to a Pleur Evac. No immediate complication was noted. Post procedure CT imaging through the drain site was obtained. DLP =1273 mGy-cm. FINDINGS: Limited CT scan of through the chest demonstrates a large sized left pneumothorax. Post pr ocedure scan shows pigtail drain within the left pneumothorax, which is decreased in size. No immedia te complication was identified. IMPRESSION: CT guided placement of 8 Nigerien pigtail drain into a left pneumothorax. PLAN: Routine tube care. Low wall suction. Daily chest x ray.
[2024-11-12] MEDS: ceFAZolin 1GM/50ML 50 ML IV ONE (14:30)
[2024-11-12] MEDS ORDERED: GABAPENTIN 100 MG CAP PO ONE (14:30)
[2024-11-12] MEDS: hydrALAZINE HCL 25 MG TAB PO ONE (14:30)
[2024-11-12] MEDS: GABAPENTIN 400 MG CAP PO ONE (15:00)
[2024-11-12] MEDS: ceFAZolin 1GM/50ML 50 ML IV SCH (15:20)
[2024-11-12] MEDS: SODIUM CHLOR 0.9% PF (SALINE LOCK) 10ML VIAL/SYR IV SCH (15:28)
[2024-11-12] MEDS: IBUPROFEN 400 MG TAB PO PRN (18:22)
[2024-11-12] MEDS: ALBUTEROL SULF 2.5 MG/0.5ML(0.5%) NEB SOLN NEB PRN (18:37)
[2024-11-13] VITALS (14 sets, daily range): BP systolic 98–132; BP diastolic 43–54; PULSE 66–94; RESP 14–18; TEMP 97.6–98.7; O2SAT 92–100
[2024-11-13] MEDS: LEVOTHYROXINE SODIUM 88 MCG TAB PO SCH (06:38)
--- NOTE | 2024-11-13 08:04 | DVHHP2 ---
Admitting Diagnosis: S/P PPI NOW WITH DELAYED PNEUMOTHORAX History of Present Illness PT WITH LEFT PNEUMOTHORAX EMERGENT CHEST TUBE PLACEMENT HX OF SSS PAUSES WITH SYNCOPE S/P PPI ABOUT A WEEK AGO NOW WITH DELAYED PNEUMOTHORAX The patient who is 84 years old with history of sick sinus syndrome, marked bradycardia, near syncope. The patient is complaining of significant lethargy and fatigue. She has pauses of greater than 3 seconds. Because of that, it is felt that the patient should undergo permanent pacemaker implantation. Risks and benefits were explained to the patient. The patient initially was reluctant to undergo the permanent pacemaker because of the age and she finally consented to it after discussing with the family members. Past Medical History PERTINENT MEDICAL HISTORY: Significant for diastolic dysfunction, severe hypertension, hyperlipidemia as well. She denies any fever, chills, melena, hematochezia, hematemesis, hemoptysis, or hematuria. Denies any epistaxis. Denies any history of trauma to the head. No history of CVA. No history of seizure disorder. No history of movement disorder. Pertinent medical history is also significant for osteoarthritis and some palpitations which is secondary to her bradycardia. She has had very labile blood pressure and that has to be monitored closely and that may be linked to the fact that the patient has marked bradycardia intermittent with pauses. FAMILY HISTORY: Negative. SOCIAL HISTORY: Negative. Past Surgical History ABOVE Family History ABOVE Social History NEGATIVE Patient Family History: FH: atrial fibrillation FH: peptic ulcer disease G8 FATHER Glaucoma 19 CHILD Hypercholesterolemia G8 MOTHER G8 FATHER Hypertension G8 MOTHER G8 FATHER G8 FATHER 19 CHILD 19 CHILD Hypertension G8 MOTHER G8 FATHER G8 FATHER 19 CHILD 19 CHILD Pacemaker G8 SISTER Allergies: Coded Allergies: Lisinopril (Verified Allergy, Mild, unk., 11/03/24) Home Meds Reported Medications Rimegepant Sulfate (Nurtec) 75 Mg Tab, 75 MG PO BIDP PRN for HEADACHES, TAB 11/03/24 Indapamide (Indapamide) 2.5 Mg Tab, 5 MG PO DAILY for EDEMA, TAB 11/03/24 Levothyroxine Sodium (Synthroid) 88 Mcg Tab, 1 TAB PO DAILY, #30 TAB 5 Refills 11/03/24 Albuterol Sulfate (Albuterol Sulfate Hfa) 108 Mcg/Act Aer, 108 MCG IN QIDP for SOB, AER 11/03/24 Clonidine HCl (Clonidine Hydrochloride) 0.1 Mg Tab, 0.1 MG PO TIDP PRN for BP, TAB 11/03/24 Gabapentin (Gabapentin) 100 Mg Cap, 400 MG PO DAILY, MG 11/03/24 Potassium Chloride (Klor-Con M20) 20 Meq Tab, 20 MEQ PO DAILY, TAB 11/03/24 Hydrocodone-Acetaminophen (Hydrocodone Bitartrate/AC 10-325 mg) 1 Tab Tab, 1 TAB PO TIDP PRN for PAIN SCALE 7 THRU 10, TAB 11/03/24 Montelukast Sodium (MONTELUKAST SODIUM) 10 Mg Tab, 1 TAB PO DAILY, #30 TAB 5 Refills 11/03/24 Lidocaine (LIDODERM 5% TOPICAL PATCH) 1 Patch Ph, 1 PATCH TOP DAILY for PAIN, #30 PATCH 1 Refill 11/03/24 Hydralazine Hcl (Hydralazine Hcl) 25 Mg Tab, 25 MG PO BID for HTN, MG 11/03/24 Metoprolol Succinate (Toprol Xl) 50 Mg Tab, 25 MG DAILY for HTN 08/11/19 Amlodipine Besylate (Amlodipine Besylate) 5 Mg Tab, 5 MG PO BID for HTN for 30 Days, MG 06/19/19 Ferrous Sulfate (Ferrous Sulfate) 325 Mg Tab, 325 MG PO DAILY for 30 Days, MG 01/30/18 Fluticasone-Salmeterol (Advair Diskus 250/50) 1 Puff Ih, 1 PUFF INH BID, #3 INHALER 3 Refills 01/30/18 Acetaminophen (Acetaminophen Extra Stren) 500 Mg Cap, 500 MG PO QIDPRN, CAP 10/23/17 Estradiol (Doreen) 0.05 Mg Dis, 0.05 MG TD 2XW, DIS 10/23/17 Cholecalciferol (D3) Unknown Strength Cap, PO, CAP 10/23/17 Montelukast Sodium (Singulair) 10 Mg Tab, 10 MG PO QPM, TAB 10/23/17 Current Medications Current Medications Medications (Trade) Dose Ordered Sig/Naresh Route PRN Reason Start Time Stop Time Status Last Admin Nitroglycerin (Ntrostat Sublingual) 0.4 mg Q5MINP PRN SL FOR CHEST PAIN 11/12/24 09:00 Morphine Sulfate 2 mg Q30M PRN IV FOR CHEST PAIN 11/12/24 09:00 Albuterol (Ventolin Hfa) 108 mcg QIDP IN 11/12/24 12:00 11/12/24 09:19 DC Amlodipine Besylate (Norvasc Tablet) 5 mg BID PO 11/12/24 10:00 Clonidine HCl (Catapres Tablet) 0.1 mg TIDP PRN PO BP 11/12/24 09:00 Gabapentin (Neurontin Capsule) 400 mg DAILY PO 11/12/24 10:00 11/12/24 14:23 DC Hydralazine HCl (Apresoline Tablet) 25 mg BID PO 11/12/24 10:00 Acetaminophen/ Hydrocodone Bitart ([place] 10/325MG Tab) 1 tab TIDP PRN PO PAIN SCALE 7 THRU 10 11/12/24 09:00 11/12/24 11:19 Levothyroxine Sodium (Synthroid Tablet) 88 mcg DAILY PO 11/12/24 10:00 UNV Lidocaine (Lidoderm 5% Topical Patch) 1 patch DAILY TOP 11/12/24 10:00 Metoprolol Succinate (Toprol Xl) 25 mg DAILY PO 11/12/24 10:00 Potassium Chloride (Klor-Con Tablet) 20 meq DAILY PO 11/12/24 10:00 Cefazolin Sodium 50 ml @ 100 mls/hr Q8HR IV 11/12/24 14:00 11/13/24 06:37 Albuterol (Ventolin Medneb) 2.5 mg Q6HPRN PRN NEB SHORTNESS OF BREATH 11/12/24 09:30 11/13/24 05:46 Sodium Chloride (Saline Lock Ns) 10 ml Q8HR IV 11/12/24 14:00 11/13/24 06:39 Levothyroxine Sodium (Synthroid Tablet) 88 mcg QAM PO 11/13/24 07:00 11/13/24 06:38 Gabapentin (Neurontin Capsule) 400 mg DAILY PO 11/13/24 10:00 Ibuprofen (Motrin Tablet) 400 mg Q8HP PRN PO MODERATE PAIN (4-6 PAIN SCALE) 11/12/24 18:00 11/12/24 18:22 Vital Signs Vital Signs Date Time Temp Pulse Resp B/P (MAP) Pulse Ox O2 Delivery O2 Flow Rate FiO2 11/13/24 05:51 75 18 100 11/13/24 05:46 Room Air 11/13/24 05:46 0 21 11/13/24 04:55 97.8 110/50 (70) 97.8 Physical Exam PHYSICAL EXAMINATION: VITAL SIGNS: Blood pressure is 180/88, pulse of 45 and regular, O2 saturation 96% on room air. HEENT: Pupils are reactive. Funduscopic exam shows no AV nicking, no exudates, no papilledema. Sclerae are anicteric. Extraocular muscles are intact. No JVD appreciated. Carotid pulses are 2+ symmetrical. No cervical adenopathy. No supraclavicular adenopathy. Oral mucosa moist. Posterior pharynx without any exudate. PULMONARY: Clear to auscultation. CARDIOVASCULAR: Regular rate without S3, without S4. PMI is not displaced. ABDOMEN: Soft. Nontender. Normal bowel sounds. EXTREMITIES: 1+ pulses bilaterally. NEUROLOGIC: The patient is intact. Wounds PACEMAKER INSERTION SITE CLEAN Primary Diagnosis SSS S/P DUAL PPI NOW WITH PNEUMOTHORAX S/P CHEST TUBE PLACEMENT Plan S/P CHEST TUBE ABX REPEAT CHEST X RAY Plan discussed with: Patient, Daughter, Son BRENDA HURST MD Nov 13, 2024 08:04
--- NOTE | 2024-11-13 08:05 | DVHPN2 ---
Progress Note - Dictate Date Seen: Nov 13, 2024 Medical Necessity Reason Pt with a Central, PICC or Fol: No Subjective PT WITH LEFT PNEUMOTHORAX EMERGENT CHEST TUBE PLACEMENT HX OF SSS PAUSES WITH SYNCOPE S/P PPI ABOUT A WEEK AGO NOW WITH DELAYED PNEUMOTHORAX vital signs Vital Sign Date Time Temp Pulse Resp B/P (MAP) Pulse Ox O2 Delivery O2 Flow Rate FiO2 11/13/24 05:51 75 18 100 11/13/24 05:46 Room Air 11/13/24 05:46 0 21 11/13/24 04:55 97.8 110/50 (70) 97.8 Total Intake and Output 11/12/24 11/12/24 11/13/24 15:00 23:00 07:00 Intake Total 100 ml 200 ml Output Total 0 ml Balance 100 ml 200 ml medications Current Medications Medications Dose Ordered Sig/Naresh Route Start Time Stop Time Status Last Admin Dose Admin Nitroglycerin 0.4 mg Q5MINP PRN SL 11/12/24 09:00 Morphine Sulfate 2 mg Q30M PRN IV 11/12/24 09:00 Amlodipine Besylate 5 mg BID PO 11/12/24 10:00 Clonidine HCl 0.1 mg TIDP PRN PO 11/12/24 09:00 Hydralazine HCl 25 mg BID PO 11/12/24 10:00 Acetaminophen/ Hydrocodone Bitart 1 tab TIDP PRN PO 11/12/24 09:00 11/12/24 11:19 Levothyroxine Sodium 88 mcg DAILY PO 11/12/24 10:00 UNV Lidocaine 1 patch DAILY TOP 11/12/24 10:00 Metoprolol Succinate 25 mg DAILY PO 11/12/24 10:00 Potassium Chloride 20 meq DAILY PO 11/12/24 10:00 Cefazolin Sodium 50 ml @ 100 mls/hr Q8HR IV 11/12/24 14:00 11/13/24 06:37 Albuterol 2.5 mg Q6HPRN PRN NEB 11/12/24 09:30 11/13/24 05:46 Sodium Chloride 10 ml Q8HR IV 11/12/24 14:00 11/13/24 06:39 Levothyroxine Sodium 88 mcg QAM PO 11/13/24 07:00 11/13/24 06:38 Gabapentin 400 mg DAILY PO 11/13/24 10:00 Ibuprofen 400 mg Q8HP PRN PO 11/12/24 18:00 11/12/24 18:22 objective PHYSICAL EXAMINATION: VITAL SIGNS: Blood pressure is 180/88, pulse of 45 and regular, O2 saturation 96% on room air. HEENT: Pupils are reactive. Funduscopic exam shows no AV nicking, no exudates, no papilledema. Sclerae are anicteric. Extraocular muscles are intact. No JVD appreciated. Carotid pulses are 2+ symmetrical. No cervical adenopathy. No supraclavicular adenopathy. Oral mucosa moist. Posterior pharynx without any exudate. PULMONARY: Clear to auscultation. CARDIOVASCULAR: Regular rate without S3, without S4. PMI is not displaced. ABDOMEN: Soft. Nontender. Normal bowel sounds. EXTREMITIES: 1+ pulses bilaterally. NEUROLOGIC: The patient is intact. Problem List SSS S/P DUAL PPI NOW WITH PNEUMOTHORAX S/P CHEST TUBE PLACEMENT [facility] Assessment/Plan S/P CHEST TUBE CARE ABX REPEAT CHEST X RAY PENDING Plan discussed with: Patient, Daughter BRENDA HURST MD Nov 13, 2024 08:05
--- NOTE | 2024-11-13 09:31 | DVH ---
INDICATION: FOLLOW UP LEFT PNEUMOTHORAX TECHNIQUE: Frontal view of the chest. COMPARISON: XY CHEST PORTABLE on DOS: 11/05/24, CHEST PORTABLE on DOS: 01/14/22, CXRP on DOS: 01/14/22 FINDINGS: Re-expansion of the left lung status post left pleural pigtail catheter placement.. The heart and med iastinal contours are grossly unremarkable. There is no evidence of pleural disease. The lungs are c lear. The bony structures of the chest are intact without fracture. IMPRESSION: Re-expansion of the left lung status post left pleural pigtail catheter placement.
[2024-11-13] MEDS: GABAPENTIN 400 MG CAP PO SCH (10:18)
[2024-11-13 11:33] LABS: Basophils # (auto) 0.1 10 ^3/uL (0-0.2); Eosinophils # (auto) 0.2 10 ^3/uL (0-0.8); Hematocrit 32.3 % (36.0-46.0); Hemoglobin 10.9 g/dL (12.2-16.2); Lymphocytes # (auto) 1.3 10 ^3/uL (0.4-5.4); Lymphocytes % (auto) 16.4 % (10.0-50.0); Mean Corpuscular Hemoglobin 29.9 pg (28.0-32.0); Mean Corpuscular Hgb Conc. 33.8 g/dL (32.0-36.0); Mean Corpuscular Volume 88.4 fL (80.0-100.0); Monocytes # (auto) 0.7 10 ^3/uL (0-1.3); Monocytes % (auto) 8.9 % (0.0-12.0); Neutrophils # (auto) 5.5 10 ^3/uL (1.6-8.6); Neutrophils % (auto) 70.7 % (37.0-80.0); Platelet Count (auto) 286 10^3/uL (140-450); Red Blood Cells 3.66 10^6/uL (4.0-5.20); Red Cell Distribution Width 15.8 % (11.8-14.3); White Blood Cell 7.8 10^3/uL (4.4-10.8)
[2024-11-13 11:51] LABS: Albumin 3.6 g/dL (3.2-4.8); Alkaline Phosphatase 49 U/L (46-116); Anion Gap 5 (5-15); Aspartate Aminotransferase 13 U/L (13-40); BUN/Creatinine Ratio 12.6 (10.0-20.0); Blood Urea Nitrogen 14 mg/dL (9-23); Calcium 8.8 mg/dL (8.7-10.4); Carbon Dioxide 31 mmol/L (20-31); Glucose 94 mg/dL (74-106); Total Protein 5.9 g/dL (5.7-8.2)
[2024-11-13 11:52] LABS: Bilirubin, Total 0.5 mg/dL (0.2-1.0)
[2024-11-13 11:55] LABS: Alanine Aminotransferase < 9 U/L (7-40); Chloride 93 mmol/L (98-107); Potassium 2.9 mmol/L (3.5-5.1); Sodium 129 mmol/L (136-145)
[2024-11-13] MEDS: POTASSIUM CHL 20MEQ/50ML 50 ML IV SCH (15:25)
[2024-11-13] MEDS: SODIUM CHL 0.9% 100 ML IV SCH (15:27)
[2024-11-14] VITALS (8 sets, daily range): BP systolic 121–141; BP diastolic 54–66; PULSE 75–88; RESP 16–18; TEMP 97.9–98.9; O2SAT 94–97
--- NOTE | 2024-11-14 13:49 | DVH ---
EXAM: XY CHEST PORTABLE TECHNIQUE: Single frontal chest radiograph CLINICAL HISTORY: check for pneumothorax COMPARISON: XY CHEST PORTABLE on DOS: 11/13/24, XY CHEST PORTABLE on DOS: 11/05/24, CHEST PORTABLE on DO S: 01/14/22 Findings/Impression: Frontal chest radiograph demonstrates no acute osseous or superficial soft tissue abnormalities. Left chest wall dual-chamber pacemaker. Pigtail catheter overlying the left mid lung field. The trachea is midline. The cardiac silhouette and mediastinum are within normal limits. No definite pneumothorax, pleural effusions, or consolidations.
[2024-11-15] VITALS (11 sets, daily range): BP systolic 123–152; BP diastolic 54–69; PULSE 77–86; RESP 16–22; TEMP 98–98.8; O2SAT 94–98
--- NOTE | 2024-11-15 15:51 | DVH ---
CHEST RADIOGRAPH Indication: assess ct, / pneumo Technique: Single frontal view of the chest was obtained COMPARISON: XY CHEST PORTABLE on DOS: 11/14/24, XY CHEST PORTABLE on DOS: 11/13/24, XY CHEST PORTABLE o n DOS: 11/05/24, CHEST PORTABLE on DOS: 01/14/22, CXRP on DOS: 01/14/22 FINDINGS: Lines and Tubes: Left chest wall pacemaker. Left chest tube in-situ. Lungs: Clear Pleura: No effusion. No pneumothorax. Cardiomediastinal contours: Unremarkable Bones: Unremarkable IMPRESSION: No appreciable pneumothorax with left chest tube in-situ.
[2024-11-16] VITALS (7 sets, daily range): BP systolic 129–135; BP diastolic 62–67; PULSE 72–82; RESP 16–18; TEMP 98–99.2; O2SAT 93–98
--- NOTE | 2024-11-16 00:26 | DVH ---
CHEST RADIOGRAPH Indication: chest tube removal Technique: Single frontal view of the chest was obtained COMPARISON: XY CHEST XRAY 1 VIEW on DOS: 11/15/24 FINDINGS: Lines and Tubes: Interval removal of left-sided chest tube. Dual-lead pacemaker again noted overlying left chest wall. Lungs: Clear. Pleura: No effusion. No pneumothorax. Cardiomediastinal contours: Unremarkable IMPRESSION: Interval removal of left-sided chest tube. No pneumothorax evident.
--- NOTE | 2024-11-16 09:14 | PRN ---
Misceleneous Note Note Note Requested by primary care provider to remove small bore chest tube. Chest x-ray was performed today which showed no residual pneumothorax. Small bore chest tube was removed, covered with Vaseline gauze dressing. New dressing was also placed over pacemaker site. Repeat chest x-ray reveals persistent 100% res olution of left pneumothorax. AMERICA CAMPA NP Nov 16, 2024 09:14
--- NOTE | 2024-11-16 12:28 | DVHPN2 ---
Progress Note - Dictate Date Seen: Nov 14, 2024 Medical Necessity Reason Pt with a Central, PICC or Fol: No Subjective PT WITH LEFT PNEUMOTHORAX EMERGENT CHEST TUBE PLACEMENT HX OF SSS PAUSES WITH SYNCOPE S/P PPI ABOUT A WEEK AGO NOW WITH DELAYED PNEUMOTHORAX vital signs Vital Sign Date Time Temp Pulse Resp B/P (MAP) Pulse Ox O2 Delivery O2 Flow Rate FiO2 11/16/24 10:00 72 133/66 11/16/24 09:00 99.2 17 94 99.2 11/16/24 06:27 Room Air 0.0 11/16/24 06:27 21 Total Intake and Output 11/15/24 11/15/24 11/16/24 15:00 23:00 07:00 Intake Total 50 ml 988 ml 250 ml Balance 50 ml 988 ml 250 ml medications Current Medications Medications Dose Ordered Sig/Naresh Route Start Time Stop Time Status Last Admin Dose Admin Nitroglycerin 0.4 mg Q5MINP PRN SL 11/12/24 09:00 Morphine Sulfate 2 mg Q30M PRN IV 11/12/24 09:00 Amlodipine Besylate 5 mg BID PO 11/12/24 10:00 11/16/24 09:10 5 MG Clonidine HCl 0.1 mg TIDP PRN PO 11/12/24 09:00 Hydralazine HCl 25 mg BID PO 11/12/24 10:00 Acetaminophen/ Hydrocodone Bitart 1 tab TIDP PRN PO 11/12/24 09:00 11/12/24 11:19 1 TAB Levothyroxine Sodium 88 mcg DAILY PO 11/12/24 10:00 UNV Lidocaine 1 patch DAILY TOP 11/12/24 10:00 Metoprolol Succinate 25 mg DAILY PO 11/12/24 10:00 Potassium Chloride 20 meq DAILY PO 11/12/24 10:00 Cefazolin Sodium 50 ml @ 100 mls/hr Q8HR IV 11/12/24 14:00 11/16/24 06:04 100 MLS/HR Albuterol 2.5 mg Q6HPRN PRN NEB 11/12/24 09:30 11/13/24 05:46 2.5 MG Sodium Chloride 10 ml Q8HR IV 11/12/24 14:00 11/16/24 06:05 10 ML Levothyroxine Sodium 88 mcg QAM PO 11/13/24 07:00 11/16/24 06:05 88 MCG Gabapentin 400 mg DAILY PO 11/13/24 10:00 11/16/24 09:09 400 MG Ibuprofen 400 mg Q8HP PRN PO 11/12/24 18:00 11/13/24 17:35 400 MG objective PHYSICAL EXAMINATION: VITAL SIGNS: Blood pressure is 180/88, pulse of 45 and regular, O2 saturation 96% on room air. HEENT: Pupils are reactive. Funduscopic exam shows no AV nicking, no exudates, no papilledema. Sclerae are anicteric. Extraocular muscles are intact. No JVD appreciated. Carotid pulses are 2+ symmetrical. No cervical adenopathy. No supraclavicular adenopathy. Oral mucosa moist. Posterior pharynx without any exudate. PULMONARY: Clear to auscultation. CARDIOVASCULAR: Regular rate without S3, without S4. PMI is not displaced. ABDOMEN: Soft. Nontender. Normal bowel sounds. EXTREMITIES: 1+ pulses bilaterally. NEUROLOGIC: The patient is intact. laboratory and microbiology Laboratory Tests 11/14/24 12:39 11/13/24 11:15 Test 11/13/24 11:15 Range/Units Serum Glucose 94 74-106 mg/dL Problem List SSS S/P DUAL PPI NOW WITH PNEUMOTHORAX S/P CHEST TUBE PLACEMENT [facility] Assessment/Plan S/P CHEST TUBE CARE ABX REPEAT CHEST X RAY PENDING LUNG REEXPANDED Dietary Evaluation Review Comments: Continue current plan of care Expected Outcomes/Goals: Pt will meet 75% estimated needs Fu 3-5 days Plan discussed with: Patient BRENDA HURST MD Nov 16, 2024 12:28
--- NOTE | 2024-11-16 12:29 | DVHPN2 ---
Progress Note - Dictate Date Seen: Nov 15, 2024 Medical Necessity Reason Pt with a Central, PICC or Fol: No Subjective PT WITH LEFT PNEUMOTHORAX EMERGENT CHEST TUBE PLACEMENT HX OF SSS PAUSES WITH SYNCOPE S/P PPI ABOUT A WEEK AGO NOW WITH DELAYED PNEUMOTHORAX vital signs Vital Sign Date Time Temp Pulse Resp B/P (MAP) Pulse Ox O2 Delivery O2 Flow Rate FiO2 11/16/24 10:00 72 133/66 11/16/24 09:00 99.2 17 94 99.2 11/16/24 06:27 Room Air 0.0 11/16/24 06:27 21 Total Intake and Output 11/15/24 11/15/24 11/16/24 15:00 23:00 07:00 Intake Total 50 ml 988 ml 250 ml Balance 50 ml 988 ml 250 ml medications Current Medications Medications Dose Ordered Sig/Naresh Route Start Time Stop Time Status Last Admin Dose Admin Nitroglycerin 0.4 mg Q5MINP PRN SL 11/12/24 09:00 Morphine Sulfate 2 mg Q30M PRN IV 11/12/24 09:00 Amlodipine Besylate 5 mg BID PO 11/12/24 10:00 11/16/24 09:10 5 MG Clonidine HCl 0.1 mg TIDP PRN PO 11/12/24 09:00 Hydralazine HCl 25 mg BID PO 11/12/24 10:00 Acetaminophen/ Hydrocodone Bitart 1 tab TIDP PRN PO 11/12/24 09:00 11/12/24 11:19 1 TAB Levothyroxine Sodium 88 mcg DAILY PO 11/12/24 10:00 UNV Lidocaine 1 patch DAILY TOP 11/12/24 10:00 Metoprolol Succinate 25 mg DAILY PO 11/12/24 10:00 Potassium Chloride 20 meq DAILY PO 11/12/24 10:00 Cefazolin Sodium 50 ml @ 100 mls/hr Q8HR IV 11/12/24 14:00 11/16/24 06:04 100 MLS/HR Albuterol 2.5 mg Q6HPRN PRN NEB 11/12/24 09:30 11/13/24 05:46 2.5 MG Sodium Chloride 10 ml Q8HR IV 11/12/24 14:00 11/16/24 06:05 10 ML Levothyroxine Sodium 88 mcg QAM PO 11/13/24 07:00 11/16/24 06:05 88 MCG Gabapentin 400 mg DAILY PO 11/13/24 10:00 11/16/24 09:09 400 MG Ibuprofen 400 mg Q8HP PRN PO 11/12/24 18:00 11/13/24 17:35 400 MG objective PHYSICAL EXAMINATION: VITAL SIGNS: Blood pressure is 180/88, pulse of 45 and regular, O2 saturation 96% on room air. HEENT: Pupils are reactive. Funduscopic exam shows no AV nicking, no exudates, no papilledema. Sclerae are anicteric. Extraocular muscles are intact. No JVD appreciated. Carotid pulses are 2+ symmetrical. No cervical adenopathy. No supraclavicular adenopathy. Oral mucosa moist. Posterior pharynx without any exudate. PULMONARY: Clear to auscultation. CARDIOVASCULAR: Regular rate without S3, without S4. PMI is not displaced. ABDOMEN: Soft. Nontender. Normal bowel sounds. EXTREMITIES: 1+ pulses bilaterally. NEUROLOGIC: The patient is intact. laboratory and microbiology Laboratory Tests 11/14/24 12:39 11/13/24 11:15 Test 11/13/24 11:15 Range/Units Serum Glucose 94 74-106 mg/dL Problem List SSS S/P DUAL PPI NOW WITH PNEUMOTHORAX S/P CHEST TUBE PLACEMENT [facility] Assessment/Plan S/P CHEST TUBE CARE ABX REPEAT CHEST X RAY PENDING LUNG REEXPANDED DC CHEST TUBE START PT Dietary Evaluation Review Comments: Continue current plan of care Expected Outcomes/Goals: Pt will meet 75% estimated needs Fu 3-5 days Plan discussed with: Patient, Daughter BRENDA HURST MD Nov 16, 2024 12:29
--- NOTE | 2024-11-16 12:31 | DVHDS2 ---
Discharge Summary Date of Admission Nov 12, 2024 at 08:56 Date of Discharge: Nov 16, 2024 Admitting Diagnosis PNEUMOTHORAX Wounds: CHEST TUBE INSERTION SITE Labs/Diagnostic Data: Laboratory Results Test 11/14/24 12:39 11/13/24 11:15 Potassium Level 3.7 mmol/L (3.5-5.1) White Blood Count 7.8 10^3/uL (4.4-10.8) Red Blood Count 3.66 10^6/uL (4.0-5.20) Hemoglobin 10.9 g/dL (12.2-16.2) Hematocrit 32.3 % (36.0-46.0) Mean Corpuscular Volume 88.4 fL (80.0-100.0) Mean Corpuscular Hemoglobin 29.9 pg (28.0-32.0) Mean Corpuscular Hemoglobin Concent 33.8 g/dL (32.0-36.0) Red Cell Distribution Width 15.8 % (11.8-14.3) Platelet Count 286 10^3/uL (140-450) Mean Platelet Volume 6.9 fL (6.9-10.8) Neutrophils (%) (Auto) 70.7 % (37.0-80.0) Lymphocytes (%) (Auto) 16.4 % (10.0-50.0) Monocytes (%) (Auto) 8.9 % (0.0-12.0) Eosinophils (%) (Auto) 3.0 % (0.0-7.0) Basophils (%) (Auto) 1.0 % (0.0-2.0) Neutrophils # (Auto) 5.5 10 ^3/uL (1.6-8.6) Lymphocytes # (Auto) 1.3 10 ^3/uL (0.4-5.4) Monocytes # (Auto) 0.7 10 ^3/uL (0-1.3) Eosinophils # (Auto) 0.2 10 ^3/uL (0-0.8) Basophils # (Auto) 0.1 10 ^3/uL (0-0.2) Nucleated Red Blood Cells 0.0 % Sodium Level 129 mmol/L (136-145) Chloride Level 93 mmol/L (98-107) Carbon Dioxide Level 31 mmol/L (20-31) Anion Gap 5 (5-15) Blood Urea Nitrogen 14 mg/dL (9-23) Creatinine 1.11 mg/dL (0.550-1.02) Glomerular Filtration Rate Calc 49 mL/min (>90) BUN/Creatinine Ratio 12.6 (10.0-20.0) Serum Glucose 94 mg/dL (74-106) Calcium Level 8.8 mg/dL (8.7-10.4) Total Bilirubin 0.5 mg/dL (0.2-1.0) Aspartate Amino Transferase (AST) 13 U/L (13-40) Alanine Aminotransferase (ALT) < 9 U/L (7-40) Alkaline Phosphatase 49 U/L (46-116) Total Protein 5.9 g/dL (5.7-8.2) Albumin 3.6 g/dL (3.2-4.8) Other Laboratory Tests 11/14/24 12:39 11/13/24 11:15 Brief Hx & Hospital Course: SSS S/P DUAL PPI NOW WITH PNEUMOTHORAX S/P CHEST TUBE PLACEMENT [facility] Assessment/Plan S/P CHEST TUBE CARE ABX REPEAT CHEST X RAY PENDING LUNG REEXPANDED DC CHEST TUBE START PT Operations or Procedures CHEST TUBE PLACEMENT Condition at Discharge: Guarded Final Diagnosis/Problems List SSS S/P DUAL PPI NOW WITH PNEUMOTHORAX S/P CHEST TUBE PLACEMENT [facility] Discharge Disposition: Home Discharge Instruct/Medications Diet: Cardiac 2g Na,low cholest Activity: No Restrictions, As Tolerated Follow Up/Referral: 1 WEEK Medications: CONT HOME MEDS Discharge Statement: "Patient was advised to return to the ER or call 911 if any headaches, dizziness, shortness of breath, chest pain, abdominal pain, bleeding, fevers, or worsening of medical condition. Patient was counseled about treatment plan, medications, possible side effects, patientverbalized understanding. All questions were answered to the best of my ability. This discharge took greater then 30 minutes in planning, reviewing documentation, counseling the patient, and discussing with other team members." ASSESSMENT ASSESSMENT Assessment BRENDA HURST MD Nov 16, 2024 12:31
--- NOTE | 2024-11-16 14:01 | DVH ---
EXAM: XY CHEST PORTABLE Indication: PNEUMOTHORAX Technique: Single frontal view of the chest was obtained Comparison: XY CHEST XRAY 1 VIEW on DOS: 11/15/24, XY CHEST XRAY 1 VIEW on DOS: 11/15/24, XY CHEST PORT ABLE on DOS: 11/14/24, XY CHEST PORTABLE on DOS: 11/13/24, XY CHEST PORTABLE on DOS: 11/05/24 FINDINGS: Lines and Tubes: Cardiac pacemaker projects over left chest wall. Lungs: No focal consolidation. Pleura: No effusion. No pneumothorax. Cardiomediastinal contours: Unremarkable Bones: No acute osseous abnormality. IMPRESSION: No acute cardiopulmonary disease.
== END 2024-11-16 14:56 | disposition home or self-care (01) | DRG 201 ==
LOC: CATH 08:13 → OVERFLOW 08:56 → TELE-EAST 15:17
PROVIDERS: ADMIT Internal Medicine Cardiovascular Disease; ATTEND Internal Medicine Cardiovascular Disease
PROC: 0W9B30Z Drainage of Left Pleural Cavity with Drainage Device, Percutaneous Approach (ICD-10-PCS; principal; 2024-11-12)
DX: J93.9 Pneumothorax, unspecified (principal); I49.5 Sick sinus syndrome; G47.33 Obstructive sleep apnea (adult) (pediatric); I10 Essential (primary) hypertension; E78.5 Hyperlipidemia, unspecified; Z82.49 Family history of ischemic heart disease and other diseases of the circulatory system; Z88.8 Allergy status to other drugs, medicaments and biological substances; Z79.51 Long term (current) use of inhaled steroids; Z79.899 Other long term (current) drug therapy; Z95.0 Presence of cardiac pacemaker
CPT/HCPCS: 10005; 32554; 36415; 71045; 71046; 71250; 71260; 74177; 77012; 80053; 84132; 85025; 94640; C1729; G0378; G0463; J1885

== ENCOUNTER → 2024-12-07 | Outpatient (CLI) | payer MEDICARE, OTHER ==
--- NOTE | 2024-12-07 13:44 | DVH ---
EXAM: XY CHEST TWO VIEWS ROUTINE CLINICAL HISTORY: SOB COMPARISON: XY CHEST TWO VIEWS ROUTINE on DOS: 11/10/24, XY CHEST TWO VIEWS ROUTINE on DOS: 11/06/24, XY CHEST TWO VIEWS ROUTINE on DOS: 11/03/24, CHEST TWO VIEWS ROUTINE on DOS: 07/25/22, CXR2 on DOS: TECHNIQUE: Frontal and lateral view of the chest was obtained FINDINGS: Lines and Tubes: Cardiac pacemaker projects over left chest wall. Lungs: No focal consolidation. Pleura: No effusion. No pneumothorax. Cardiomediastinal contours: Unremarkable. Atherosclerotic vascular calcifications of the thoracic ao rta are noted. Bones: No acute osseous abnormality. IMPRESSION: No acute cardiopulmonary disease.
== END | disposition home or self-care (01) ==
LOC: Rad HDHVI 12:52
PROVIDERS: ATTEND Internal Medicine Cardiovascular Disease
DX: I70.0 Atherosclerosis of aorta (principal); R06.02 Shortness of breath
CPT/HCPCS: 71046